=== PATIENT | male | born 1945 | race Caucasian/White ===

== ENCOUNTER → 2017-01-03 | Outpatient (CLI) | payer OTHER ==
[~2017-01-03] MED LIST: IOPAMIDOL (ISOVUE 370) 100 ML BTL IV ONE
== END ==
LOC: FIMAGING 11:38
PROVIDERS: ATTEND Internal Medicine Cardiovascular Disease
DX: I65.23 Occlusion and stenosis of bilateral carotid arteries (principal)
CPT/HCPCS: 70498; Q9967

== ENCOUNTER → 2017-02-14 | Outpatient (CLI) | payer OTHER | LOC: FIMAGING 15:44 | PROVIDERS: ATTEND Internal Medicine | DX: R10.9 Unspecified abdominal pain (principal) ==

== ENCOUNTER → 2017-05-13 | Outpatient (CLI) | payer OTHER ==
[~2017-05-13] MED LIST changes: -IOPAMIDOL (ISOVUE 370) 100 ML BTL IV ONE; +IOPAMIDOL (ISOVUE-M 200) 20 ML VIAL ONE; +LIDOCAINE 1% 300 MG/30 ML SDV ONE
== END ==
LOC: FIMAGING 05-07 09:22
PROVIDERS: ATTEND Neurological Surgery
PROC: 3E0R3KZ Introduction of Other Diagnostic Substance into Spinal Canal, Percutaneous Approach (ICD-10-PCS; principal; 2017-05-13)
DX: M48.061 Spinal stenosis, lumbar region without neurogenic claudication (principal); M99.73 Connective tissue and disc stenosis of intervertebral foramina of lumbar region; S33.140A Subluxation of L4/L5 lumbar vertebra, initial encounter
CPT/HCPCS: 62304; 72110; 72132; 72265; Q9966

== ENCOUNTER 2017-05-29 05:44 | Inpatient (IN) | payer OTHER ==
[2017-05-29] MEDS ORDERED: ACETAMINOPHEN 500 MG TAB PO ONE (05:50)
[2017-05-29] MEDS ORDERED: GABAPENTIN 300 MG CAP PO ONE (05:50)
[2017-05-29] MEDS ORDERED: ceFAZolin 2 GM/SWFI 2 GM/20 ML SYR IVP ONE (05:50)
--- NOTE | 2017-05-29 06:38 | PDHPUP ---
History & Physical Update H&P update statement: This history and physical update is based on an assessment of the patient which was completed after admission or registration (within 24 hours), but prior to the surgery/procedure. H&P update: H&P reviewed & patient examined, no change in patient's condition since H&P completed
[2017-05-29] MEDS ORDERED: CHLORHEXIDINE GLUC HIBICLENS 118 ML BTL TP ONE (06:57)
[2017-05-29] MEDS ORDERED: BACITRACIN 50,000 UNITS/10 ML SYR IRR ONE ×2 (06:58→10:35)
[2017-05-29] MEDS ORDERED: BUPIVACAINE 0.25% 30 ML SDV ONE (06:59)
[2017-05-29] MEDS ORDERED: morphINE SR 15 MG TAB PO ONE (07:00)
[2017-05-29] MEDS ORDERED: MIDAZOLAM 2 MG/2 ML VIAL IVP ONE (07:08)
--- NOTE | 2017-05-29 07:10 | PDANEPAE ---
ANE History of Present Illness spinal stenosis ANE Past Medical History - Cardiovascular History Hx Hypertension: Yes Hx Arrhythmias: Yes Hx Chest Pain: No Hx Coronary Artery / Peripheral Vascular Disease: Yes Hx CHF / Valvular Disease: Yes Hx Palpitations: No Cardiovascular History Comment: hx of CHF. ISCHEMIC CARDIOMYOPATHY. PACER / ICD '12. stents 2009. HIGH LIPIDS - Pulmonary History Hx Asthma/Reactive Airway Disease: No Hx Recent Upper Respiratory Infection: No Hx Oxygen in Use at Home: No Hx Sleep Apnea: Yes Sleep Apnea Screening Result - Last Documented: Positive Pulmonary History Comment: JARRETT- USE CPAP - Neurologic History Hx Cerebrovascular Accident: No Hx Seizures: No Hx Dementia: No Neurologic History Comment: hx of lumbar lami with vbk resulting in infection - Endocrine History Hx Diabetes: Yes Endocrine History Comment: TYPE 2 - Renal History Hx Renal Disorders: No - Liver History Hx Hepatic Disorders: No - Neurological & Psychiatric Hx Hx Neurological and Psychiatric Disorders: Yes Neurological / Psychiatric History Comment: low back pain, L glute pain,Pain in Post thigh. - Cancer History Hx Cancer: No - Congenital Disorder History Hx Congenital Disorders: No - GI History Hx Gastrointestinal Disorders: No Gastrointestinal History Comment: FISTULA REP SURG 2011. DIARRHEA - Other Health History Other Health History: none - Chronic Pain History Chronic Pain: Yes (back, L leg) - Surgical History Prior Surgeries: L carpal tunnel release,unlar nerve transposition 09-16-15. lumbar lami l3/4 l4/5 with vbk 02/09/14. lumbar i&d with vbk 03/03/14. CABG X3 - '98. ANAL FISTULA X 2 '12. R KNEE '65 ANGIOPLASY X 1-2 STENTS '. 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: [employer] Pacemaker Model: Lumax Date Pacemaker Last Checked: 03-11-17 ANE Patient History - Allergies Allergies/Adverse Reactions: hydrocodone bitartrate [From [facility]] Allergy (Severe, Verified 05/21/17 17:42) CONFUSION niacin Allergy (Verified 05/21/17 17:42) ITCHING,MUSCLE SORENESS, NAUSEA oxycodone Allergy (Verified 05/21/17 17:42) Other-Enter Comments antibiotic causing kidney/liver dis Allergy (Uncoded 05/21/17 17:42) - Home Medications Home Medications: Atorvastatin Calcium [Lipitor 20 mg (*)] 20 mg PO DAILY 09/15/12 [Last Taken 21:00] Carvedilol [Coreg (*)] 25 mg PO BIDMEAL 09/15/12 [Last Taken 05/29/17 05:00] Herbals/Supplements -Info Only 1 ea PO DAILY 03/01/14 [Last Taken 05/21/17] Watts-3 Fatty Acids [Fish Oil 1000 mg (*)] 3,000 mg PO DAILY 03/01/14 [Last Taken 05/21/17] Allopurinol [Allopurinol 100 MG (*)] 450 mg PO DAILY 05/20/17 [Last Taken 05:00] Aspirin [Aspirin 81mg (*)] 81 mg PO DAILY 05/20/17 [Last Taken 05/28/17] Cyanocobalamin [Vitamin B12 (*)] 2,500 mcg PO DAILY 05/20/17 [Last Taken Unknown ] Dabigatran Etexilate Mesyl [Pradaxa 150 MG (*)] 150 mg PO BID 05/20/17 [Last Taken 05/28/17 21:00] Ferrous Sulfate [Ferrous Sulf 325 MG (*)] 325 mg PO DAILY 05/20/17 [Last Taken Unknown] Gabapentin [Neurontin 300 MG (*)] 600 mg PO BID@,16 05/20/17 [Last Taken 05/29 05:00] Gabapentin [Neurontin 300 MG (*)] 900 mg PO HS 05/20/17 [Last Taken 05/28/17 21: 00] Hydrochlorothiazide [HCTZ (*)] 12.5 mg PO DAILY 05/20/17 [Last Taken 05/22/17] Multivitamins [Multivitamin (*)] 1 each PO DAILY 05/20/17 [Last Taken 05/21/17] Valsartan [Diovan (*)] 320 mg PO DAILY 05/20/17 [Last Taken 05/28/17 21:00] glipiZIDE [Glipizide] 5 mg PO BID 05/20/17 [Last Taken 05/28/17 08:00] - NPO status NPO Since - Liquids (Date): 05/28/17 NPO Since - Liquids (Time): 21:00 NPO Since - Solids (Date): 05/28/17 NPO Since - Solids (Time): 21:00 - Smoking Hx Smoking Status: Former smoker - Family Anes Hx Family Hx Anesthesia Complications: NONE ANE Labs/Vital Signs - Vital Signs Blood Pressure: 127/71 Heart Rate: 86 Respiratory Rate: 20 Height: 172.72 cm Weight: 102.058 kg ANE Physical Exam - Airway Mallampati Score: Class 2 Mouth exam: normal dental/mouth exam - Pulmonary Pulmonary: no respiratory distress - Cardiovascular Cardiovascular: regular rate and rhythym - ASA Status ASA Status: IV ANE Anesthesia Plan Anesthesia Plan: general endotracheal anesthesia
[2017-05-29] MEDS ORDERED: PROPOFOL 200 MG/20 ML VIAL ONE (07:15)
[2017-05-29] MEDS ORDERED: HYDROmorphONE/DILAUDID 2 MG/ML INJ ONE (07:15)
[2017-05-29] MEDS ORDERED: fentaNYL 100 MCG/2 ML INJ ONE ×2 (07:15)
[2017-05-29] MEDS ORDERED: ROCURONIUM 50 MG/5 ML VIAL ONE (07:15)
[2017-05-29] MEDS ORDERED: KETAMINE 100 MG/10 ML SYR ONE (07:28)
[2017-05-29] MEDS ORDERED: PROPOFOL/EMULSION 500 MG/50 ML BOTTLE IV ONE (07:29)
[2017-05-29] MEDS ORDERED: POLYETHYLENE GLYCOL 3350 17 GM PKT PO PRN (07:35)
[2017-05-29] MEDS ORDERED: ONDANSETRON DISINTEGRATING 4 MG TAB PO PRN (07:35)
[2017-05-29] MEDS ORDERED: diphenhydrAMINE 25 MG CAP PO PRN (07:35)
[2017-05-29] MEDS ORDERED: NALOXONE HCL 0.4 MG/ML INJ IVP PRN ×2 (07:35→11:58)
[2017-05-29] MEDS ORDERED: BISACODYL 10 MG SUPP PR PRN (07:35)
[2017-05-29] MEDS ORDERED: HYDROmorphONE/DILAUDID 6 MG/30 ML PCA IV PRN (07:35)
[2017-05-29] MEDS ORDERED: HYDROmorphONE/DILAUDID 1 MG/ML INJ IVP PRN (07:35)
[2017-05-29] MEDS ORDERED: LACTULOSE 20 GM/30 ML UDCUP PO PRN (07:35)
[2017-05-29] MEDS ORDERED: MAGNESIUM HYDROXIDE 30 ML UDCUP PO PRN (07:35)
[2017-05-29] MEDS ORDERED: ONDANSETRON 4 MG/2 ML VIAL IVP PRN ×2 (07:35→11:58)
[2017-05-29] MEDS ORDERED: NS W/ 20 KCl/L 1,000 ML IV SCH (07:45)
[2017-05-29] MEDS ORDERED: fentaNYL 100 MCG/2 ML INJ IVP PRN (11:58)
[2017-05-29] MEDS ORDERED: PROMETHAZINE HCL 25 MG/ML INJ IVP PRN (11:58)
--- NOTE | 2017-05-29 12:39 | POSTANESTH ---
Post Anesthetic Evaluation Cardiovascular Status: Normal, Stable Respiratory Status: Normal, Stable Level of Consciousness/Mental Status: Can Participate in Eval Pain Control: Adequate, Prn Tx Ordered Nausea/Vomiting Control: Adequate, Prn Tx Ordered Complications Possibly Related to Anesthesia: None Noted
--- NOTE | 2017-05-29 13:01 | SOAPPROG ---
SOAP Progress Note Assessment/Plan: Post Op Visit S: Awake and alert. Pt with expected lower back pain O: AFVSS/PERRLA/EOMI no droop CN 2-12 grossly intact +lt touch 5/5 BUE/BLE = CDI HERNÁN in place A/P: 71 yo male that is s/p TLIF L4-S1 -orders in place -brace when out of bed -pt seen by Dr Contreras -call with any questions or concerns 05/29/17 12:58 Objective: Vital Signs Temp Pulse Resp BP Pulse Ox 37 C 86 12 127/103 H 98 05/29/17 06:51 05/29/17 07:10 05/29/17 12:48 05/29/17 12:48 05/29/17 12:48 ICD10 Worksheet Patient Problems: Problems Problem Status Onset Arthrodesis status Acute Lumbar radicular pain Acute Lumbar stenosis Acute CAD - Coronary arteriosclerosis Active CHF - Congestive heart failure Active Chronic obstructive lung disease Active - ICD10 Problem Qualifiers (1) Lumbar stenosis (2) Lumbar radicular pain (3) Arthrodesis status
--- NOTE | 2017-05-29 14:09 | GOP ---
[f rep st] OPERATIVE REPORT DATE OF OPERATION: 05/29/2017 SURGEON: Radu Contreras MD IMAGING TECH: Gonzalo Linda PA-C PREOPERATIVE DIAGNOSIS: Lumbar spondylosis, prior lumbar laminectomy, lumbar degenerative disk disea se, severe left foraminal stenosis (L4-5), left lumbosacral radiculopathy, foraminal stenosis L5-S1. POSTOPERATIVE DIAGNOSIS: Lumbar spondylosis, prior lumbar laminectomy, lumbar degenerative disk dise ase, severe left foraminal stenosis (L4-5), left lumbosacral radiculopathy, foraminal stenosis L5-S1. PROCEDURE PERFORMED: Posterior lateral and intervertebral arthrodesis with decompression, left L4-5, L5-S1 (16511 [id number]), posterior segmental instrumentation L4, L5, S1 (72847), microscope, spinal stereotaxy, same incision bone graft harvest, placement of biomechanical intervertebral device L4-5, L5-S1. FINDINGS: ESTIMATED BLOOD LOSS: 250 cc. INDICATIONS: The patient is a 71-year-old with a prior history of a lumbar laminectomy (by an outsid e surgeon), who developed terrible left leg pain, and CT myelogram of the lumbar spine demonstrated n o evidence of complication from the prior surgery, but he did have severe left foraminal stenosis at L4-5 and some bilateral foraminal stenosis at L5-S1. I suggested a 2-level fusion of those levels. He did have a degree of stenosis at L2-3 and even L3-4, but I did not think that these warranted wes tment currently. I felt that the pain was most likely coming from the L4-5, L5-S1 levels. I discuss ed with him the risk of spinal fluid leak, particularly the risk in view of his prior lumbar decompre ssive surgery. He knew there was risk of pseudoarthrosis, adjacent segment disease, future spine hu baldo at L2-3 and 3-4. He knew there was a chance he may fail to heal and that he may or may not get relief from his leg pain. He knew there would be substantial back pain following this surgery, but i n time it generally resolves. He knew there was risk of CSF leak and infection, and he wanted to pro ceed despite these risks. DESCRIPTION OF PROCEDURE: Patient was taken to the operating room and placed in the supine position. General anesthesia was begun. He was flipped prone onto the Cuong table. Care was taken to pad all points of contact. His back was sterilely prepped and draped in the usual fashion. A localizing x-ray was taken. The prior incision was marked. We opened the prior incision, extended it rostrall y about 1.5 cm and inferiorly about 1.5 cm. The prior incision was about 3.5 cm. Total length of ou r incision was about 7 cm. The subcutaneous tissue was dissected using Bovie cautery down through th e fascia, and a subperiosteal dissection was made down the L3 spinous process. We went out and locat ed the L3-4 facet joint and then the L4 transverse process, and worked our way down on each side, den uding the L4-5 facet joint and localizing the L5 transverse process and then the sacral ala bilateral ly. We then denuded the L5-S1 facet joint bilaterally. We did shoot localizing x-rays before doing this, we attached the Portal [employer] reference frame, performed an O-arm spin and, using the frame of [facility] stereotaxy, placed pedicle screws bilaterally at L4, L5, and S1. Screws all stimulated at acceptab le levels. We performed another O-arm spin and all the screws were in excellent position. We then t ook a 70 mm steph, put 1 down on the left transitionally and tightened there and distracted between L4, 5, and S1. Then went to the right and transitionally tightened there, and then went back to the lef t and rotated the steph to get reduction of the lateral listhesis of L4 on L5, and then final distracte d on the left at L4-5, 5-1 and final tightened the cap screws according to company specifications. We then went to the right-hand side where we finished our distraction on the right-hand side. We julita t AP and lateral x-rays, and I was very happy with both his lumbar lordosis as well as the increase i n his disk space height at L4-5 and 5-1. We final tightened the cap screws according to company spec ifications and removed all soft tissue from the L4-5 and 5-1 lamina. We harvested the L5 spinous pro cess for autologous grafting purposes, introduced the scope, and under the scope we drilled left L5-S 1 hemilaminectomy, opened ligamentum flavum, and decompressed the left lateral recess. There were re ally very tight adhesions between the S1 root and the underlying disk at L5-S1, and these had to be d ivided under the microscope, I was very surprised, because we could not really break through these ad hesions, but I did ultimately divide them and mobilized the left S1 root. We also decompressed the e xiting L5 root in the neural foramen and followed the L5 nerve root up adjacent to the L5 pedicle int o the previously operated level at L4-5, where we performed the left L4-5 facetectomy, decompressing the exiting L4 nerve root. In the neural foramen, there was a large sub-annular disk fragment compre ssing the L4 root, and this was removed. We incised the L4-5 disk and removed the L4-5 disk and the cartilaginous endplates. We did likewise at L5-S1, we removed the disk and the cartilaginous endplat es. We then roughened the subchondral bone at L4-5 and 5-1 to create arthrodesis. We sized both spa sandrine for a 7 x 23 mm device. We packed bone autograft into both disk spaces followed by the 7 x 23 mm device. We then expanded it under fluoroscopic guidance, and I was happy with the positioning. We decorticated all the remaining bone posterolaterally bilaterally. There was a slight crack in the ri ght pars interarticularis of L5, but it was not a crack consistent with an isthmic spondylolisthesis; it just simply appeared to be a small hairline fracture. We denuded the bone on either side of this . We did not perform a Mcfarlane decompression, and it did not really appear to be iatrogenic or related to prior surgery. We decorticated all the surrounding bone and placed bone morphogenic protein and b one autograft posterolaterally bilaterally. We then placed a subfascial drain and closed the incisio n in multiple layers using Vicryl sutures. A running PDS was placed in the skin itself. The patient was reversed from anesthesia, extubated, and transferred to the recovery room in stable condition. There were no complications. COMPLICATIONS: None. INSTRUMENTATION USED: BIMA Solera 5.5 mm system with 7 x 23 mm Elevate cages at each level. We used 4.0 mg of BMP. COMPLICATIONS: None. /[id number]/MODL
[2017-05-29] MEDS ORDERED: HYDROmorphONE/DILAUDID 2 MG TAB ONE (14:20)
[2017-05-29] MEDS: HYDROmorphONE/DILAUDID 2 MG TAB PO PRN (14:21)
[2017-05-29] MEDS ORDERED: D50W 25 GM/50 ML SYR IVP PRN (14:33)
[2017-05-29] MEDS ORDERED: HYDROmorphone HCL/NS/PF 0.4 MG/2 ML SYR IVP PRN (15:00)
--- NOTE | 2017-05-29 15:01 | PDHOSCONS ---
Hospitalist Consult Hospitalist Consult: This is a 71 yo male who had lumbar fusion today due to lumbar disease and right leg pain by Dr. Contreras. He has complicated medical history and we have been asked to provide consultation. Surgery was uneventful. VS are stable. BP is overall well controlled on 2 agents. He has a hx on NIDDM. Last A1C is unclear. He has a hx of reported CKI, but most recent Cr is 1.2. He has a hx of CAD and is s/p CABG x 3 in 1997 as wel as BiAICD. He has a hx of AFib and is on Coreg. He has chronic AC with Pradaxa. He also is chronically on an Aspirin. Both of these have been held. He denies CP, SOB, N/V or other GI sx, focal weakness. 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 Will check A1C. Start ISS -Pain mgmt per primary -Lovenox for DVT proph -The pt's biggest anxiety provoking issue is that he developed a staph infection after his previous lumbars surgery. We will monitor closely. Thank you for this consultation, we will follow along with you
[2017-05-29] MEDS: ceFAZolin 2 GM/DEXTROSE 100 ML IV SCH ×2 (15:43→22:24)
[2017-05-29] MEDS: GABAPENTIN 300 MG CAP PO SCH ×5 (15:44→22:26)
[2017-05-29] MEDS: ACETAMINOPHEN 500 MG TAB PO SCH ×2 (15:45→22:26)
[2017-05-29] MEDS: CARVEDILOL 25 MG TAB PO SCH ×2 (16:05→16:53)
[2017-05-29] MEDS: ALLOPURINOL 100 MG TAB PO SCH (16:05)
[2017-05-29] MEDS: ATORVASTATIN CALCIUM 20 MG TAB PO SCH (16:05)
[2017-05-29] MEDS: HYDROCHLOROTHIAZIDE 12.5 MG CAP PO SCH (16:06)
[2017-05-29] MEDS: glipiZIDE 5 MG TAB PO SCH ×2 (16:06→20:10)
[2017-05-29] MEDS: CYANO/VITAMIN B12 1000 MCG TAB PO SCH (16:06)
[2017-05-29] MEDS: FERROUS SULFATE 325 MG TAB PO SCH (16:06)
[2017-05-29] MEDS: FAMOTIDINE 20 MG TAB PO SCH ×2 (16:06→20:10)
[2017-05-29] MEDS: SENNOSIDES/DOCUSATE SODIUM TAB PO SCH ×2 (16:07→20:09)
[2017-05-29] MEDS: VALSARTAN 160 MG TAB PO SCH ×2 (16:07→16:53)
[2017-05-29] MEDS: morphINE SR 15 MG TAB PO SCH ×2 (16:07→20:09)
[2017-05-29] MEDS: METHOCARBAMOL 750 MG TAB PO PRN (16:38)
--- NOTE | 2017-05-29 17:08 | CPEKG ---
Heart Rate: 109 RR Interval: 550 QRSD Interval: 124 QT Interval: 392 QTC Interval: 529 QRS [place]: -66 T Wave [place]: 89 EKG Severity - ABNORMAL ECG - EKG Impression: ATRIAL FIBRILLATION, V-RATE 88-132 EKG Impression: NONSPECIFIC IVCD WITH LAD EKG Impression: CONSIDER ANTEROSEPTAL INFARCT EKG Impression: ATRIAL FIBRILLATION HAS REPLACED ATRIAL PACING NOTED ON PRIOR ECG Electronically Signed By: Lucio Kang 29-May-2017 17:39:46
[2017-05-29] MEDS: INSULIN LISPRO 100 UNIT/ML SC SCH ×2 (17:43→22:24)
[2017-05-29] MEDS ORDERED: METOPROLOL TARTRATE 5 MG/5 ML INJ IVP ONE (17:45)
[2017-05-30] MEDS: ACETAMINOPHEN 500 MG TAB PO SCH ×3 (05:27→21:26)
[2017-05-30] MEDS: GABAPENTIN 300 MG CAP PO SCH ×6 (05:28→21:28)
[2017-05-30] MEDS: METHOCARBAMOL 750 MG TAB PO PRN (05:30)
[2017-05-30 05:42] LABS: PLATELET COUNT 119 10^3/uL (150-400)
--- NOTE | 2017-05-30 07:10 | NEUSURGPN ---
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 NAD. Eating/drinking and voiding. No f/c/n/v/d. Objective: AFVSS/PERRLA/EOMI no droop CN 2-12 grossly intact +lt touch 5/5 BUE/BLE = CDI HERNÁN in place Neuro Check Frequency: per routine Urinary Catheter in Place: No Catheter Insertion Date: 05/29/17 - Physician Discussed Patient with : Ben Patient Seen by : Ben Neurosurgery Physical Exam - Vitals, I&O, Labs I and O 05/29/17 05/30/17 05/31/17 05:59 05:59 05:59 Intake Total 2160 Output Total 1560 Balance 600 Weight 102.058 kg Intake: Oral (ml) 260 IV Intake (ml) 1900 Output: Urine (ml) 1000 Catheter 1000 HERNÁN Drain Output (ml) 560 #1 Back 560 Other: Number of Voids Catheter 1 Vital Signs Temp Pulse Resp BP Pulse Ox 37.0 C 88 18 115/78 94 05/30/17 04:00 05/30/17 04:00 05/30/17 04:00 05/30/17 04:00 05/30/17 04:00 Laboratory Results 05/30/17 05:20 05/30/17 05:20 ICD10 Worksheet Patient Problems: Problems Problem Status Onset Arthrodesis status Acute Lumbar radicular pain Acute Lumbar stenosis Acute CAD - Coronary arteriosclerosis Active CHF - Congestive heart failure Active Chronic obstructive lung disease Active - ICD10 Problem Qualifiers (1) Lumbar stenosis (2) Lumbar radicular pain (3) Arthrodesis status
[2017-05-30] MEDS: INSULIN LISPRO 100 UNIT/ML SC SCH ×3 (08:27→17:23)
[2017-05-30] MEDS: FAMOTIDINE 20 MG TAB PO SCH ×2 (08:31→21:26)
[2017-05-30] MEDS: FERROUS SULFATE 325 MG TAB PO SCH (08:32)
[2017-05-30] MEDS: ATORVASTATIN CALCIUM 20 MG TAB PO SCH (08:32)
[2017-05-30] MEDS: morphINE SR 15 MG TAB PO SCH ×2 (08:32→21:26)
[2017-05-30] MEDS: VALSARTAN 160 MG TAB PO SCH (08:33)
[2017-05-30] MEDS: SENNOSIDES/DOCUSATE SODIUM TAB PO SCH ×2 (08:33→21:27)
[2017-05-30] MEDS: CARVEDILOL 25 MG TAB PO SCH ×2 (08:33→17:22)
[2017-05-30] MEDS: glipiZIDE 5 MG TAB PO SCH ×2 (08:34→21:27)
[2017-05-30] MEDS: HYDROCHLOROTHIAZIDE 12.5 MG CAP PO SCH (08:34)
[2017-05-30] MEDS: ALLOPURINOL 100 MG TAB PO SCH (08:41)
[2017-05-30] MEDS: CYANO/VITAMIN B12 1000 MCG TAB PO SCH (08:43)
--- NOTE | 2017-05-30 14:24 | HOSPPROG ---
Hospitalist Progress Note Assessment/Plan: This is a 71 yo male who had lumbar fusion due to severe left foraminal stenosis causing leg pain. He has done well in the post op setting. He has a hx of NIDDM, CKI, CAD, s/p CABG x 3 in 1997 and has a BiAICD. Has afib and is on Pradaxa and aspirin therapy. Today is my first encounter with the patient, chart reviewed. *Severe left foraminal stenosis causing leg pain s/p TLIF L4-S1 POD #1 *Chronic Afib on Coreg/well rate controlled spoke w Neurosurgery and ok to resume Pradaxa on Saturday resume aspirin when ok with neurosurgery *Hx of systolic heart failure euvolemic sees Dr. Tee Khan as an OP *HTN stable on ARB and HCTZ *Chronic renal insuff cont close monitoring *HLD statin therapy *NIDDM w associated neuropathy glucoses overall are stable Glipizide A1c is 6.5 with average glucose of 140 *DVT prophylaxis: LMWH to be started on Saturday per neurosurgery *Plan: continued close monitoring/ both and patient are anxious about patient's prior hx of getting a staph infection after surgery/ will monitor him closely. Will resume Pradaxa this Saturday. Updated both the patient and his about plan of care. Subjective: Douglas is overall feeling well. Objective: Vital Signs Temp Pulse Resp BP Pulse Ox 36.9 C 90 17 106/68 92 05/30/17 14:00 05/30/17 14:00 05/30/17 08:00 05/30/17 14:00 05/30/17 14:00 Laboratory Results 05/30/17 05:20 05/30/17 05:20 05/29/17 05/30/17 05/31/17 05:59 05:59 05:59 Intake Total 2160 300 Output Total 1560 Balance 600 300 - Physical Exam Constitutional: no apparent distress, obese Eyes: PERRL Ears, Nose, Mouth, Throat: hearing normal Cardiovascular: irregularly irregular Respiratory: no respiratory distress, reduced air movement (bases) Gastrointestinal: other (large and round) Skin: warm Musculoskeletal: generalized weakness Neurologic: AAOx3 Psychiatric: interacting appropriately ICD10 Worksheet Patient Problems: Problems Problem Status Onset Arthrodesis status Acute Lumbar radicular pain Acute Lumbar stenosis Acute CAD - Coronary arteriosclerosis Active CHF - Congestive heart failure Active Chronic obstructive lung disease Active
--- NOTE | 2017-05-30 16:40 | ASMTCMCOM ---
CM Note CM Note Notes: OT rec home, PT rec HHC vs. SNF. Spoke at length w pt and Aparna about d/c options. They described what was a traumatic time when pt last had surgery over 3 years ago when pt had a staph infection and pt only SNF option was [facility]. Pt interested in referral to [facility] and plans to tour. CM to follow. Date Signed: 05/30/2017 04:39 PM Electronically Signed By:JAY Muñoz
[2017-05-30] MEDS: HYDROmorphONE/DILAUDID 2 MG TAB PO PRN (17:22)
[2017-05-31] MEDS: HYDROmorphONE/DILAUDID 2 MG TAB PO PRN ×2 (01:17→19:35)
[2017-05-31 05:08] LABS: PLATELET COUNT 100 10^3/uL (150-400)
[2017-05-31] MEDS: ACETAMINOPHEN 500 MG TAB PO SCH ×3 (05:59→21:39)
[2017-05-31] MEDS: GABAPENTIN 300 MG CAP PO SCH ×4 (05:59→21:38)
--- NOTE | 2017-05-31 08:15 | NEUSURGPN ---
Assessment/Plan: Assessment: 71 yo male that is s/p TLIF L4-S1 POD #2 Plan: -pt with expected lower back pain-legs feel better -PT/OT ordered -post op xrays show stable hardware -HERNÁN still in place- remove today -[employer]->PO meds -IM on board for management of medical issues-appreciate input and care -call with any questions or concerns -brace when out of bed -pt d/w Dr Contreras -pt understands and agrees -Dispo: may need rehab placement. Subjective: Pt resting in bed, states he wants to go to rehab and is interested in this Objective: AAOx3 NAD VSS MAEx4 Motor 5/5 BLE Incision dressed JPx1 Urinary Catheter in Place: No Catheter Insertion Date: 05/29/17 - Physician Discussed Patient with : Ben Neurosurgery Physical Exam - Vitals, I&O, Labs I and O 05/30/17 05/31/17 06/01/17 05:59 05:59 05:59 Intake Total 2160 300 Output Total 1560 1560 180 Balance 600 -1260 -180 Weight 102.058 kg Intake: Oral (ml) 260 300 IV Intake (ml) 1900 Output: Urine (ml) 1000 1500 Catheter 1000 Urinal 1500 HERNÁN Drain Output (ml) 560 60 180 #1 Back 560 60 180 Other: Number of Voids Catheter 1 Toilet 1 Urinal 2 Vital Signs Temp Pulse Resp BP Pulse Ox 36.7 C 75 18 119/67 91 L 05/31/17 04:00 05/31/17 04:00 05/31/17 04:00 05/31/17 04:00 05/31/17 04:00 Laboratory Results 05/31/17 04:49 05/31/17 04:49 ICD10 Worksheet Patient Problems: Problems Problem Status Onset Arthrodesis status Acute Lumbar radicular pain Acute Lumbar stenosis Acute CAD - Coronary arteriosclerosis Active CHF - Congestive heart failure Active Chronic obstructive lung disease Active
[2017-05-31] MEDS: FAMOTIDINE 20 MG TAB PO SCH ×2 (09:30→21:38)
[2017-05-31] MEDS: ATORVASTATIN CALCIUM 20 MG TAB PO SCH (09:34)
[2017-05-31] MEDS: VALSARTAN 160 MG TAB PO SCH (09:34)
[2017-05-31] MEDS: HYDROCHLOROTHIAZIDE 12.5 MG CAP PO SCH (09:34)
[2017-05-31] MEDS: ALLOPURINOL 100 MG TAB PO SCH (09:35)
[2017-05-31] MEDS: CARVEDILOL 25 MG TAB PO SCH ×2 (09:35→17:28)
[2017-05-31] MEDS: morphINE SR 15 MG TAB PO SCH ×2 (09:35→21:38)
[2017-05-31] MEDS: glipiZIDE 5 MG TAB PO SCH ×2 (09:36→21:38)
[2017-05-31] MEDS: CYANO/VITAMIN B12 1000 MCG TAB PO SCH (09:37)
[2017-05-31] MEDS: SENNOSIDES/DOCUSATE SODIUM TAB PO SCH ×2 (09:37→21:39)
--- NOTE | 2017-05-31 10:35 | HOSPPROG ---
Hospitalist Progress Note Assessment/Plan: This is a 71 yo male who had lumbar fusion due to severe left foraminal stenosis causing leg pain. He has done well in the post op setting. He has a hx of NIDDM, CKI, CAD, s/p CABG x 3 in 1997 and has a BiAICD. Has afib and is on Pradaxa and aspirin therapy. *Severe left foraminal stenosis causing leg pain s/p TLIF L4-S1 POD #2 *Chronic Afib on Coreg/well rate controlled spoke w Neurosurgery and ok to resume Pradaxa on Saturday resume aspirin when ok with neurosurgery *Hx of systolic heart failure/ resolved euvolemic sees Dr. Tee Khan as an OP *HTN stable on ARB and HCTZ *Chronic renal insuff cont close monitoring * hx of staph infection after back surgery occurred several years ago no indication for abx at this time for prevention *HLD statin therapy *NIDDM w associated neuropathy glucoses overall are stable Glipizide A1c is 6.5 with average glucose of 140 *DVT prophylaxis: LMWH to be started on Saturday per neurosurgery *Plan: Continue current care/ he will likely be dc to SNF on Saturday Subjective: Douglas is feeling fine at this time. Objective: Vital Signs Temp Pulse Resp BP Pulse Ox 36.9 C 106 H 18 115/77 95 05/31/17 07:30 05/31/17 09:35 05/31/17 07:30 05/31/17 09:35 05/31/17 07:30 Laboratory Results 05/31/17 04:49 05/31/17 04:49 05/30/17 05/31/17 06/01/17 05:59 05:59 05:59 Intake Total 2160 300 Output Total 1560 1560 250 Balance 600 -1260 -250 - Physical Exam Constitutional: no apparent distress, not in pain, obese Eyes: PERRL Ears, Nose, Mouth, Throat: hearing normal Cardiovascular: no murmur, rub, or gallop, irregularly irregular Respiratory: no respiratory distress Skin: warm Musculoskeletal: generalized weakness Neurologic: AAOx3 Psychiatric: interacting appropriately ICD10 Worksheet Patient Problems: Problems Problem Status Onset Arthrodesis status Acute Lumbar radicular pain Acute Lumbar stenosis Acute CAD - Coronary arteriosclerosis Active CHF - Congestive heart failure Active Chronic obstructive lung disease Active
[2017-05-31] MEDS: FERROUS SULFATE 325 MG TAB PO SCH (10:36)
[2017-05-31] MEDS: INSULIN LISPRO 100 UNIT/ML SC SCH ×3 (10:38→17:29)
[2017-06-01] MEDS: HYDROmorphONE/DILAUDID 2 MG TAB PO PRN ×2 (02:47→07:41)
[2017-06-01] MEDS: ACETAMINOPHEN 500 MG TAB PO SCH ×3 (05:16→21:24)
[2017-06-01] MEDS: GABAPENTIN 300 MG CAP PO SCH ×3 (05:16→21:24)
[2017-06-01] MEDS: METHOCARBAMOL 750 MG TAB PO PRN ×2 (07:41→21:24)
--- NOTE | 2017-06-01 08:03 | SOAPPROG ---
SOAP Progress Note Assessment/Plan: Assessment: 71 yo male that is s/p TLIF L4-S1 POD #3 Plan: -pt with expected lower back pain-legs feel better -PT/OT ordered, rehab eval pending -post op xrays show stable hardware, good alignment -IM on board for management of medical issues-appreciate input and care -call with any questions or concerns -brace when out of bed -likely d/c to rehab on Saturday or earlier if bed available 06/01/17 08:02 Subjective: no new complaints, very happy Objective: Vital Signs Temp Pulse Resp BP Pulse Ox 37.2 C 81 19 128/83 H 95 06/01/17 04:00 06/01/17 04:00 06/01/17 04:00 06/01/17 04:00 06/01/17 04:00 Laboratory Results 05/31/17 04:49 05/31/17 04:49 05/31/17 06/01/17 06/02/17 05:59 05:59 04:59 Intake Total 300 300 Output Total 1560 1600 Balance -1260 -1300 AAOx3, full strength and sensation, no drift, dressings c/d/i - Pending Discharge Pending Discharge Within 24 Hours: No Pending Discharge Within 48 Hours: Yes Pending Discharge Date: 06/03/17 Pending Discharge Time: 11:00 ICD10 Worksheet Patient Problems: Problems Problem Status Onset Arthrodesis status Acute Lumbar radicular pain Acute Lumbar stenosis Acute CAD - Coronary arteriosclerosis Active CHF - Congestive heart failure Active Chronic obstructive lung disease Active
[2017-06-01] MEDS: VALSARTAN 160 MG TAB PO SCH (08:48)
[2017-06-01] MEDS: morphINE SR 15 MG TAB PO SCH ×2 (08:48→21:25)
[2017-06-01] MEDS: SENNOSIDES/DOCUSATE SODIUM TAB PO SCH ×2 (08:48→21:26)
[2017-06-01] MEDS: CYANO/VITAMIN B12 1000 MCG TAB PO SCH (08:49)
[2017-06-01] MEDS: CARVEDILOL 25 MG TAB PO SCH ×2 (08:51→18:24)
[2017-06-01] MEDS: glipiZIDE 5 MG TAB PO SCH ×2 (08:51→21:25)
[2017-06-01] MEDS: FERROUS SULFATE 325 MG TAB PO SCH (08:52)
[2017-06-01] MEDS: ATORVASTATIN CALCIUM 20 MG TAB PO SCH (08:52)
[2017-06-01] MEDS: FAMOTIDINE 20 MG TAB PO SCH ×2 (08:52→21:25)
[2017-06-01] MEDS: HYDROCHLOROTHIAZIDE 12.5 MG CAP PO SCH (08:52)
[2017-06-01] MEDS: ALLOPURINOL 100 MG TAB PO SCH (08:53)
[2017-06-01] MEDS: INSULIN LISPRO 100 UNIT/ML SC SCH ×3 (08:54→18:41)
[2017-06-01] MEDS ORDERED: ENOXAPARIN 40 MG/0.4 ML SYR SC SCH (09:00)
--- NOTE | 2017-06-01 11:35 | HOSPPROG ---
Hospitalist Progress Note Assessment/Plan: This is a 71 yo male who had lumbar fusion due to severe left foraminal stenosis causing leg pain. He has done well in the post op setting. He has a hx of NIDDM, CKI, CAD, s/p CABG x 3 in 1997 and has a BiAICD. Has afib and is on Pradaxa and aspirin therapy. *Severe left foraminal stenosis causing leg pain s/p TLIF L4-S1 POD #3 *Chronic Afib on Coreg/well rate controlled spoke w Neurosurgery and ok to resume Pradaxa today resume aspirin when ok with neurosurgery *Hx of systolic heart failure/ resolved euvolemic sees Dr. Tee Khan as an OP *HTN stable on ARB and HCTZ *Chronic renal insuff cont close monitoring * hx of staph infection after back surgery occurred several years ago no indication for abx at this time for prevention *HLD statin therapy *NIDDM w associated neuropathy change to ADA diet Glipizide A1c is 6.5 with average glucose of 140 *DVT prophylaxis: dc LMWH/ patient is on Pradaxa/ spoke with neurosurgery and they were ok to initiate this today *Plan: Continue current care/ he will likely be dc to SNF on Saturday per neurosurgery/check labs in a.m. Subjective: Douglas said his pain is well managed/ feeling well. Objective: Vital Signs Temp Pulse Resp BP Pulse Ox 36.7 C 81 16 119/60 95 06/01/17 08:30 06/01/17 08:51 06/01/17 08:30 06/01/17 08:52 06/01/17 08:30 Laboratory Results 05/31/17 04:49 05/31/17 04:49 05/31/17 06/01/17 06/02/17 05:59 05:59 04:59 Intake Total 300 300 Output Total 1560 1600 300 Balance -1260 -1300 -300 - Physical Exam Constitutional: no apparent distress, appears nourished, not in pain Eyes: PERRL Ears, Nose, Mouth, Throat: hearing normal Cardiovascular: irregularly irregular, No tachycardia Respiratory: no respiratory distress, clear to auscultation Gastrointestinal: normoactive bowel sounds Skin: warm Musculoskeletal: generalized weakness Neurologic: AAOx3 Psychiatric: interacting appropriately ICD10 Worksheet Patient Problems: Problems Problem Status Onset Arthrodesis status Acute Lumbar radicular pain Acute Lumbar stenosis Acute CAD - Coronary arteriosclerosis Active CHF - Congestive heart failure Active Chronic obstructive lung disease Active
[2017-06-01] MEDS: DABIGATRAN ETEXILATE MESYL 150 MG CAP PO SCH ×2 (13:14→21:23)
[2017-06-02] MEDS: GABAPENTIN 300 MG CAP PO SCH ×3 (04:40→19:59)
[2017-06-02] MEDS: ACETAMINOPHEN 500 MG TAB PO SCH ×3 (04:43→19:59)
[2017-06-02 05:28] LABS: PLATELET COUNT 117 10^3/uL (150-400)
[2017-06-02] MEDS: INSULIN LISPRO 100 UNIT/ML SC SCH ×3 (07:50→17:04)
[2017-06-02] MEDS: CYANO/VITAMIN B12 1000 MCG TAB PO SCH (08:11)
[2017-06-02] MEDS: VALSARTAN 160 MG TAB PO SCH (08:11)
[2017-06-02] MEDS: glipiZIDE 5 MG TAB PO SCH ×2 (08:12→19:58)
[2017-06-02] MEDS: SENNOSIDES/DOCUSATE SODIUM TAB PO SCH ×2 (08:13→19:51)
[2017-06-02] MEDS: CARVEDILOL 25 MG TAB PO SCH ×2 (08:13→17:05)
[2017-06-02] MEDS: HYDROCHLOROTHIAZIDE 12.5 MG CAP PO SCH (08:13)
[2017-06-02] MEDS: DABIGATRAN ETEXILATE MESYL 150 MG CAP PO SCH ×2 (08:13→19:58)
[2017-06-02] MEDS: FERROUS SULFATE 325 MG TAB PO SCH (08:14)
[2017-06-02] MEDS: ATORVASTATIN CALCIUM 20 MG TAB PO SCH (08:15)
[2017-06-02] MEDS: ALLOPURINOL 300 MG TAB PO SCH (08:15)
[2017-06-02] MEDS: FAMOTIDINE 20 MG TAB PO SCH ×2 (08:16→19:58)
--- NOTE | 2017-06-02 09:13 | SOAPPROG ---
SOAP Progress Note Assessment/Plan: Assessment: 71 yo male that is s/p TLIF L4-S1 POD #4 Plan: -pt with expected lower back pain-legs feel better -PT/OT ordered, rehab eval pending, -post op xrays show stable hardware, good alignment -IM on board for management of medical issues-appreciate input and care -will add some trazodone at night for sleep -call with any questions or concerns -brace when out of bed -likely d/c to rehab on Saturday or earlier if bed available 06/02/17 09:11 Subjective: c/o difficulty sleeping last night Objective: Vital Signs Temp Pulse Resp BP Pulse Ox 36.9 C 102 H 15 157/84 H 90 L 06/02/17 07:51 06/02/17 07:51 06/02/17 07:51 06/02/17 08:11 06/02/17 07:51 Laboratory Results 06/02/17 05:11 06/02/17 05:11 06/01/17 06/02/17 06/03/17 06:59 05:59 05:59 Intake Total Output Total Balance AAOx3, full strength and sensation, no drift, dressing c/d/i - Pending Discharge Pending Discharge Within 24 Hours: Yes Pending Discharge Within 48 Hours: Yes Pending Discharge Date: 06/03/17 Pending Discharge Time: 11:00 ICD10 Worksheet Patient Problems: Problems Problem Status Onset Arthrodesis status Acute Lumbar radicular pain Acute Lumbar stenosis Acute CAD - Coronary arteriosclerosis Active CHF - Congestive heart failure Active Chronic obstructive lung disease Active
--- NOTE | 2017-06-02 10:27 | ASMTCMCOM ---
CM Note CM Note Notes: Pt's toured [facility] yesterday and chose them. Faxed referral and spoke with Liz in admissions who agreed to accept tomorrow. Pt and would like AM DC. Alerted Powerback to pt's choice. Date Signed: 06/02/2017 10:26 AM Electronically Signed By:Elvi Duong LCSW
--- NOTE | 2017-06-02 10:27 | ASMTCMCOM ---
CM Note CM Note Notes: Pt's toured [facility] yesterday and chose them. Faxed referral and spoke with Liz in admissions who agreed to accept tomorrow. Pt and would like AM DC. Alerted Powerback to pt's choice. Date Signed: 06/02/2017 10:26 AM Electronically Signed By:Elvi Duong LCSW
--- NOTE | 2017-06-02 10:27 | ASMTCMCOM ---
CM Note CM Note Notes: Pt's toured [facility] yesterday and chose them. Faxed referral and spoke with Liz in admissions who agreed to accept tomorrow. Pt and would like AM DC. Alerted Powerback to pt's choice. Date Signed: 06/02/2017 10:26 AM Electronically Signed By:Elvi Duong LCSW
[2017-06-02] MEDS: morphINE SR 15 MG TAB PO SCH ×2 (10:34→19:51)
--- NOTE | 2017-06-02 11:16 | HOSPPROG ---
Hospitalist Progress Note Assessment/Plan: This is a 71 yo male who had lumbar fusion due to severe left foraminal stenosis causing leg pain. He has done well in the post op setting. He has a hx of NIDDM, CKI, CAD, s/p CABG x 3 in 1997 and has a BiAICD. Has afib and is on Pradaxa and aspirin therapy. *Severe left foraminal stenosis causing leg pain s/p TLIF L4-S1 POD #4 on long acting morphine has done well w Tramadol in the past/ have ordered this *permanent Afib on Coreg/well rate controlled spoke w Neurosurgery and ok to resume Pradaxa today resume aspirin when ok with neurosurgery *Hx of systolic heart failure/ resolved euvolemic sees Dr. Tee Khan as an OP *insomnia last night will dc Trazodone and do a trial of melatonin/ he had some confusion last night concerned the Trazodone will make this worse *HTN stable on ARB and HCTZ *Chronic renal insuff cont close monitoring * hx of staph infection after back surgery occurred several years ago no indication for abx at this time for prevention *HLD statin therapy *NIDDM w associated neuropathy change to ADA diet Glipizide A1c is 6.5 with average glucose of 140 *DVT prophylaxis: dc LMWH/ patient is on Pradaxa *Plan: Continue current care/ he will likely be dc to SNF on Saturday. [facility] will be [facility]. Subjective: Douglas is feeling well today/ had some insomnia last night. Objective: Vital Signs Temp Pulse Resp BP Pulse Ox 36.9 C 102 H 15 157/84 H 90 L 06/02/17 07:51 06/02/17 07:51 06/02/17 07:51 06/02/17 08:11 06/02/17 07:51 Laboratory Results 06/02/17 05:11 06/02/17 05:11 06/01/17 06/02/17 06/03/17 06:59 05:59 05:59 Intake Total Output Total Balance - Physical Exam Constitutional: no apparent distress, not in pain, obese Eyes: PERRL Ears, Nose, Mouth, Throat: hearing normal Cardiovascular: irregularly irregular Respiratory: no respiratory distress Gastrointestinal: normoactive bowel sounds Skin: warm Musculoskeletal: generalized weakness Neurologic: AAOx3 Psychiatric: interacting appropriately ICD10 Worksheet Patient Problems: Problems Problem Status Onset CHF - Congestive heart failure Active CAD - Coronary arteriosclerosis Active Chronic obstructive lung disease Active Lumbar stenosis Acute Lumbar radicular pain Acute Arthrodesis status Acute
[2017-06-02] MEDS ORDERED: traMADol 50 MG TAB PO PRN (11:19)
[2017-06-02] MEDS ORDERED: MELATONIN 3 MG TAB PO SCH (21:00)
[2017-06-02] MEDS ORDERED: traZODone 50 MG TAB PO SCH (21:00)
[2017-06-03 02:59] VITALS: BP 146/87
[2017-06-03] MEDS: GABAPENTIN 300 MG CAP PO SCH (04:48)
[2017-06-03] MEDS: ACETAMINOPHEN 500 MG TAB PO SCH (04:49)
[2017-06-03 07:44] VITALS: PULSE 95; RESP 16; TEMP 98.4; O2SAT 92
[2017-06-03] MEDS: CYANO/VITAMIN B12 1000 MCG TAB PO SCH (08:39)
[2017-06-03] MEDS: VALSARTAN 160 MG TAB PO SCH (08:40)
[2017-06-03] MEDS: ALLOPURINOL 300 MG TAB PO SCH (08:40)
[2017-06-03] MEDS: FAMOTIDINE 20 MG TAB PO SCH (08:40)
[2017-06-03] MEDS: HYDROCHLOROTHIAZIDE 12.5 MG CAP PO SCH (08:40)
[2017-06-03] MEDS: SENNOSIDES/DOCUSATE SODIUM TAB PO SCH (08:40)
[2017-06-03] MEDS: CARVEDILOL 25 MG TAB PO SCH (08:41)
[2017-06-03] MEDS: ATORVASTATIN CALCIUM 20 MG TAB PO SCH (08:41)
[2017-06-03] MEDS: FERROUS SULFATE 325 MG TAB PO SCH (08:41)
[2017-06-03] MEDS: DABIGATRAN ETEXILATE MESYL 150 MG CAP PO SCH (08:42)
[2017-06-03] MEDS: glipiZIDE 5 MG TAB PO SCH (08:42)
--- NOTE | 2017-06-03 08:43 | NEUSURGPN ---
Date of Surgery: 05/29/17 Post Op Day: 5 Assessment/Plan: 71 yo male that is s/p TLIF L4-S1 POD #5 Plan: -pt with expected lower back pain-legs feel better -PT/OT ordered -rehab eval pending -post op xrays show stable hardware, good alignment -IM on board for management of medical issues-appreciate input and care -call with any questions or concerns -brace when out of bed -may dc to rehab/SNF today per case management/therapies recs Subjective: Patient feeling well today Objective: AxO x3 Sitting up in chair 5/5 BLE Sensation intact light touch BLE Dressing CDI Neuro Check Frequency: per routine Urinary Catheter in Place: No Catheter Insertion Date: 05/29/17 - Physician Discussed Patient with : Ben Patient Seen by : Bne Neurosurgery Physical Exam - Vitals, I&O, Labs I and O 06/02/17 06/03/17 06/04/17 05:59 05:59 05:59 Intake Total 300 Output Total Balance 300 Intake: Oral (ml) 300 Output: Urine (ml) Urinal Other: Number of Voids Toilet 3 Number of Stools Toilet Vital Signs Temp Pulse Resp BP Pulse Ox 36.9 C 95 16 146/87 H 92 06/03/17 07:41 06/03/17 07:41 06/03/17 07:41 06/03/17 07:41 06/03/17 07:41 Laboratory Results 06/02/17 05:11 06/02/17 05:11 ICD10 Worksheet Patient Problems: Problems Problem Status Onset Arthrodesis status Acute Lumbar radicular pain Acute Lumbar stenosis Acute CAD - Coronary arteriosclerosis Active CHF - Congestive heart failure Active Chronic obstructive lung disease Active
--- NOTE | 2017-06-03 08:49 | PDIAF ---
- Diagnosis Code Status: Full Code - Medication Management Discharge Medications: Medications to Continue on Transfer Atorvastatin Calcium [Lipitor 20 mg (*)] 20 mg PO DAILY 09/15/12 [Last Taken 21:00] Carvedilol [Coreg (*)] 25 mg PO BIDMEAL 09/15/12 [Last Taken 05/29/17 05:00] Herbals/Supplements -Info Only 1 ea PO DAILY 03/01/14 [Last Taken 05/21/17] Cornucopia-3 Fatty Acids [Fish Oil 1000 mg (*)] 3,000 mg PO DAILY 03/01/14 [Last Taken 05/21/17] Allopurinol [Allopurinol 100 MG (*)] 450 mg PO DAILY 05/20/17 [Last Taken 05:00] Aspirin [Aspirin 81mg (*)] 81 mg PO DAILY 05/20/17 [Last Taken 05/28/17] Cyanocobalamin [Vitamin B12 (*)] 2,500 mcg PO DAILY 05/20/17 [Last Taken Unknown ] Dabigatran Etexilate Mesyl [Pradaxa 150 MG (*)] 150 mg PO BID 05/20/17 [Last Taken 05/28/17 21:00] Ferrous Sulfate [Ferrous Sulf 325 MG (*)] 325 mg PO DAILY 05/20/17 [Last Taken Unknown] Gabapentin [Neurontin 300 MG (*)] 600 mg PO BID@,05/20/17 [Last Taken 05/29 05:00] Gabapentin [Neurontin 300 MG (*)] 900 mg PO HS 05/20/17 [Last Taken 05/28/17 21: 00] Hydrochlorothiazide [HCTZ (*)] 12.5 mg PO DAILY 05/20/17 [Last Taken 05/22/17] Multivitamins [Multivitamin (*)] 1 each PO DAILY 05/20/17 [Last Taken 05/21/17] Valsartan [Diovan (*)] 320 mg PO DAILY 05/20/17 [Last Taken 05/28/17 21:00] glipiZIDE [Glipizide] 5 mg PO BID 05/20/17 [Last Taken 05/28/17 08:00] Acetaminophen [Tylenol ES 500 mg (*)] 1,000 mg PO Q8HRS tab 06/03/17 [Last Taken Unknown] Methocarbamol [Robaxin 750 mg (*)] 750 mg PO QID PRN tab 06/03/17 [Last Taken Unknown] Sennosides/Docusate Sodium [Senokot-S] 1 - 2 tab PO BID tab 06/03/17 [Last Taken Unknown] Discharge Medications: Refer to the Discharge Home Medication list for PRN reason. PICC Care - Routine: N/A - Orders Services needed: Registered Nurse, Certified Junior Php Developer, Physical Therapy, Occupational Therapy Diet Recommendation: no restrictions on diet Diet Texture: Regular Texture Diet Wound Care Instructions: May remove dressing, leave steri strips in place Activity/Weight Bearing Restrictions: No bending or twisting. Do not lift greater than 10 pounds Equipment: Wear brace when out of bed - Follow Up Care Current Providers and Referrals: Alba Melendez MD [Primary Care Provider] - Rome Contreras MD [Medical Doctor] - follow up in 2 weeks
[2017-06-03] MEDS: INSULIN LISPRO 100 UNIT/ML SC SCH (09:04)
[2017-06-03] MEDS: morphINE SR 15 MG TAB PO SCH (09:05)
--- NOTE | 2017-06-03 10:49 | ASMTCMCOM ---
CM Note CM Note Notes: Pt medically stable for d/c to [facility] transport 10:40. TRESA Beyer to call report. Orders sent in Allscripts. Pt is present for d/c. Date Signed: 06/03/2017 10:48 AM Electronically Signed By:JAY Muñoz
--- NOTE | 2017-06-03 10:49 | ASMTCMCOM ---
CM Note CM Note Notes: Pt medically stable for d/c to [facility] transport 10:40. TRESA Beyer to call report. Orders sent in Allscripts. Pt is present for d/c. Date Signed: 06/03/2017 10:48 AM Electronically Signed By:JAY Muñoz
--- NOTE | 2017-06-03 10:49 | ASMTCMCOM ---
CM Note CM Note Notes: Pt medically stable for d/c to [facility] transport 10:40. TRESA Beyer to call report. Orders sent in Allscripts. Pt is present for d/c. Date Signed: 06/03/2017 10:48 AM Electronically Signed By:JAY Muñoz
--- NOTE | 2017-06-03 12:06 | ASDISCHSUM ---
Discharge Information Plan Status:SNF Medically Cleared to Leave: Discharge Date:06/03/2017 10:52 AM CM D/C Disposition:Half-Way Facility ADT D/C Disposition:Half-Way Facility Projected Discharge Date:06/01/2017 11:00 AM Transportation at D/C:Wheelchair Van Discharge Delay Reason: Follow-Up Date:06/01/2017 11:00 AM Discharge Slot: Final Diagnosis: Placement Information Referral Type:*Assisted/SNF Referral ID:[id number] Provider Name:[facility] Address 1:[address] Address 2: City:[place] Selection Factors: State:[place] Patient Contact Information Contact Name:RAMONA Relationship: Address:[address] City:[place] Alternate Phone: State/Zip Code:[place] [address] Email: Financial Information Financial Class: Primary Plan Desc:MEDICARE INPATIENT Primary Plan Number:[id number] Secondary Plan Desc:[facility] Secondary Plan Number:[id number] Assessment Information [facility] CM Progress Note CM Note CM Note Notes: OT rec home, PT rec HHC vs. SNF. Spoke at length w pt and Aparna about d/c options. They described what was a traumatic time when pt last had surgery over 3 years ago when pt had a staph infection and pt only SNF option was [facility]. Pt interested in referral to [facility] and plans to tour. CM to follow. Date Signed: 05/30/2017 04:39 PM Electronically Signed By:JAY Muñoz [facility] CM Progress Note CM Note CM Note Notes: Pt's toured [facility] yesterday and chose them. Faxed referral and spoke with Liz in admissions who agreed to accept tomorrow. Pt and would like AM DC. Alerted Powerback to pt's choice. Date Signed: 06/02/2017 10:26 AM Electronically Signed By:Elvi Duong LCSW [facility] CM Progress Note CM Note CM Note Notes: [facility] 10:[facility]. TRESA Beyer to call report. Orders sent in Allscripts. Pt is present for d/c. Date Signed: 06/03/2017 10:48 AM Electronically Signed By:JAY Muñoz Intervention Information Intervention Type:*IM-Signed Date of Service:06/03/2017 09:16 AM Patient Type:Inpatient Staff Member:Rhonda Hernandes Hours: Discipline: Severity: Comment:
--- NOTE | 2017-06-03 12:06 | ASDISCHSUM ---
Discharge Information Plan Status:SNF Medically Cleared to Leave: Discharge Date:06/03/2017 10:52 AM CM D/C Disposition:Group Home Facility ADT D/C Disposition:Group Home Facility Projected Discharge Date:06/01/2017 11:00 AM Transportation at D/C:Wheelchair Van Discharge Delay Reason: Follow-Up Date:06/01/2017 11:00 AM Discharge Slot: Final Diagnosis: Placement Information Referral Type:*Alf/SNF Referral ID:[id number] Provider Name:[facility] Address 1:[address] Address 2: City:[place] Selection Factors: State:[place] Patient Contact Information Contact Name:RAMONA Relationship: Address:[address] City:[place] Alternate Phone: State/Zip Code:[place] [address] Email: Financial Information Financial Class: Primary Plan Desc:MEDICARE INPATIENT Primary Plan Number:[id number] Secondary Plan Desc:[facility] Secondary Plan Number:[id number] Assessment Information [facility] CM Progress Note CM Note CM Note Notes: OT rec home, PT rec HHC vs. SNF. Spoke at length w pt and Aparna about d/c options. They described what was a traumatic time when pt last had surgery over 3 years ago when pt had a staph infection and pt only SNF option was [facility]. Pt interested in referral to [facility] and plans to tour. CM to follow. Date Signed: 05/30/2017 04:39 PM Electronically Signed By:JAY Muñoz [facility] CM Progress Note CM Note CM Note Notes: Pt's toured [email or web address] yesterday and chose them. Faxed referral and spoke with Liz in admissions who agreed to accept tomorrow. Pt and would like AM DC. Alerted Powerback to pt's choice. Date Signed: 06/02/2017 10:26 AM Electronically Signed By:Elvi Duong LCSW [facility] CM Progress Note CM Note CM Note Notes: [facility] 10:[facility]. TRESA Beyer to call report. Orders sent in Allscripts. Pt is present for d/c. Date Signed: 06/03/2017 10:48 AM Electronically Signed By:JAY Muñoz Intervention Information Intervention Type:*IM-Signed Date of Service:06/03/2017 09:16 AM Patient Type:Inpatient Staff Member:Rhonda Hernandes Hours: Discipline: Severity: Comment:
--- NOTE | 2017-06-03 12:06 | ASDISCHSUM ---
Discharge Information Plan Status:SNF Medically Cleared to Leave: Discharge Date:06/03/2017 10:52 AM CM D/C Disposition:Jail Facility ADT D/C Disposition:Jail Facility Projected Discharge Date:06/01/2017 11:00 AM Transportation at D/C:Wheelchair Van Discharge Delay Reason: Follow-Up Date:06/01/2017 11:00 AM Discharge Slot: Final Diagnosis: Placement Information Referral Type:*[facility]/SNF Referral ID:[id number] Provider Name:[facility] Address 1:[address] Address 2: City:[place] Selection Factors: State:[place] Patient Contact Information Contact Name:RAMONA Relationship: Address:[address] City:[place] Alternate Phone: State/Zip Code:[place] [address] Email: Financial Information Financial Class: Primary Plan Desc:MEDICARE INPATIENT Primary Plan Number:[id number] Secondary Plan Desc:[facility] Secondary Plan Number:[id number] Assessment Information [facility] CM Progress Note CM Note CM Note Notes: OT rec home, PT rec HHC vs. SNF. Spoke at length w pt and Aparna about d/c options. They described what was a traumatic time when pt last had surgery over 3 years ago when pt had a staph infection and pt only SNF option was [facility] [place]. Pt interested in referral to [facility] and plans to tour. CM to follow. Date Signed: 05/30/2017 04:39 PM Electronically Signed By:JAY Muñoz [facility] CM Progress Note CM Note CM Note Notes: Pt's toured [facility] yesterday and chose them. Faxed referral and spoke with Liz in admissions who agreed to accept tomorrow. Pt and would like AM DC. Alerted [employer] to pt's choice. Date Signed: 06/02/2017 10:26 AM Electronically Signed By:Elvi Duong LCSW [facility] CM Progress Note CM Note CM Note Notes: [facility] medically stable [email or web address] 10:40. TRESA Beyer to call report. Orders sent in Allscripts. Pt is present for d/c. Date Signed: 06/03/2017 10:48 AM Electronically Signed By:JAY Muñoz Intervention Information Intervention Type:*IM-Signed Date of Service:06/03/2017 09:16 AM Patient Type:Inpatient Staff Member:Rhonda Hernandes Hours: Discipline: Severity: Comment:
== END 2017-06-03 10:52 | DRG 460 ==
LOC: F3N 05:44
PROVIDERS: ADMIT Neurological Surgery; ATTEND Neurological Surgery
DX: M47.26 Other spondylosis with radiculopathy, lumbar region (principal); M51.36 Other intervertebral disc degeneration, lumbar region; M43.16 Spondylolisthesis, lumbar region; M48.061 Spinal stenosis, lumbar region without neurogenic claudication; M48.07 Spinal stenosis, lumbosacral region; G96.12 Meningeal adhesions (cerebral) (spinal); I48.2 Chronic atrial fibrillation; G47.33 Obstructive sleep apnea (adult) (pediatric); E11.9 Type 2 diabetes mellitus without complications; I25.10 Atherosclerotic heart disease of native coronary artery without angina pectoris; I12.9 Hypertensive chronic kidney disease with stage 1 through stage 4 chronic kidney disease, or unspecified chronic kidney disease; N18.9 Chronic kidney disease, unspecified; E78.5 Hyperlipidemia, unspecified; Z79.82 Long term (current) use of aspirin; Z95.810 Presence of automatic (implantable) cardiac defibrillator; Z98.1 Arthrodesis status; Z86.19 Personal history of other infectious and parasitic diseases; Z95.1 Presence of aortocoronary bypass graft
CPT/HCPCS: 97116-GP; 97161-GP; 97166-GO; 97535-GO; C1713; G8978-GP-CK; G8979-GP-CI; G8987-GO-CI; G8988-GO-CI; J0171; J0690; J1170; J1650; J1815; J2250; J2704; J3010

== ENCOUNTER → 2017-07-02 | Outpatient (CLI) | payer OTHER | LOC: FIMAGING 12:08 | PROVIDERS: ATTEND Physician Assistant | DX: Z47.89 Encounter for other orthopedic aftercare (principal); Z98.1 Arthrodesis status ==

== ENCOUNTER → 2017-07-23 | Outpatient (CLI) | payer OTHER | LOC: FIMAGING 12:22 | PROVIDERS: ATTEND Neurological Surgery | DX: Z98.1 Arthrodesis status (principal) ==

== ENCOUNTER 2017-10-13 08:48 | Inpatient (IN) | payer OTHER ==
--- NOTE | 2017-10-13 09:00 | EDPHY ---
H & P Stated Complaint: sob last night withhx afib Time Seen by Provider: 10/13/17 08:59 - Personal History Current Tetanus/Diphtheria Vaccine: Yes Tetanus Vaccine Date: < 10 YEARS - Medical/Surgical History Hx Asthma: No Hx Chronic Respiratory Disease: No Hx Diabetes: Yes Hx Cardiac Disease: Yes Hx Renal Disease: No Hx Cirrhosis: No Hx Alcoholism: No Hx HIV/AIDS: No Hx Splenectomy or Spleen Trauma: No Other PMH: diabetes type 2, HTN, JARRETT, uses CPAP at [facility], CAD, angioplasty, CABGx 3 vessels, hypercholesterolemia, DDD, rotator cuff repair, pacemaker - Social History Smoking Status: Former smoker Constitutional: Initial Vital Signs Temperature (C) 36.7 C 10/13/17 08:52 Heart Rate 98 10/13/17 08:52 Respiratory Rate 18 10/13/17 08:52 Blood Pressure 176/115 H 10/13/17 08:52 O2 Sat (%) 93 10/13/17 08:52 O2 Delivery Mode Nasal Cannula O2 (L/minute) 2 Allergies/Adverse Reactions: hydrocodone bitartrate [From [place]] Allergy (Severe, Verified 10/13/17 08:51) CONFUSION niacin Allergy (Verified 10/13/17 08:51) ITCHING,MUSCLE SORENESS, NAUSEA oxycodone Allergy (Verified 10/13/17 08:51) Other-Enter Comments antibiotic causing kidney/liver dis Allergy (Uncoded 05/21/17 17:42) Home Medications: Medication Instructions Recorded Atorvastatin Calcium [Lipitor 20 20 mg PO DAILY 09/15/12 mg (*)] Carvedilol [Coreg (*)] 25 mg PO BIDMEAL 09/15/12 Herbals/Supplements -Info Only 1 ea PO DAILY 03/01/14 [place]-3 Fatty Acids [Fish Oil 1000 3,000 mg PO DAILY 03/01/14 mg (*)] Allopurinol [Allopurinol 100 MG 450 mg PO DAILY 05/20/17 (*)] Aspirin [Aspirin 81mg (*)] 81 mg PO DAILY 05/20/17 Cyanocobalamin [Vitamin B12 (*)] 2,500 mcg PO DAILY 05/20/17 Dabigatran Etexilate Mesyl 150 mg PO BID 05/20/17 [Pradaxa 150 MG (*)] Ferrous Sulfate [Ferrous Sulf 325 325 mg PO DAILY 05/20/17 MG (*)] Gabapentin [Neurontin 300 MG (*)] 600 mg PO BID@,16 05/20/17 Gabapentin [Neurontin 300 MG (*)] 900 mg PO HS 05/20/17 Hydrochlorothiazide [HCTZ (*)] 12.5 mg PO DAILY 05/20/17 Multivitamins [Multivitamin (*)] 1 each PO DAILY 05/20/17 Valsartan [Diovan (*)] 320 mg PO DAILY 05/20/17 glipiZIDE [Glipizide] 5 mg PO BID 05/20/17 Acetaminophen [Tylenol ES 500 mg 1,000 mg PO Q8HRS tab 06/03/17 (*)] Methocarbamol [Robaxin 750 mg (*)] 750 mg PO QID PRN tab 06/03/17 Sennosides/Docusate Sodium 1 - 2 tab PO BID tab 06/03/17 [Senokot-S] Medical Decision Making - Diagnostics Imaging Results: Imaging Impressions Chest X-Ray 10/13/17 09:08 Impression: No evidence for acute cardiopulmonary abnormality. Stable chronic findings, as above. Imaging: I viewed and interpreted images myself ED Course/Re-evaluation: CHIEF COMPLAINT: Dyspnea HISTORY OF PRESENT ILLNESS: The patient is an anticoagulated 72 y/o male with multiple comorbidities arriving with his complaining of persistent dyspnea onset in the middle of the night several hours ago. His medical history includes atrial fibrillation, CHF, diabetes type 2, hypertension, He tried using his CPAP without improvement and ultimately came here for evaluation. Symptoms are worse when lying flat. He had similar symptoms previously a few years ago and was told it was due to CHF. He has not noticed rapid heart rate, but cannot usually tell if he is in atrial fibrillation or not. His pacemaker was evaluated in July and they told him he was in atrial fibrillation frequently. He denies recent illness or trauma. Notes his pacemaker battery is low and scheduled to be replaced in October. REVIEW OF SYSTEMS: A 10 point review of systems was performed and is negative with the exception of the elements mentioned in the history of present illness. PHYSICAL EXAM: HR, BP, O2 Sat, RR. Temp noted General Appearance: Alert, well hydrated, appropriate, and non-toxic appearing. Head: Atraumatic without scalp tenderness or obvious injury Eyes: Pupils equal, round, reactive to light and accommodation, EOMI, no trauma , no injection. Nose: Atraumatic, no rhinorrhea, clear. Throat: There is no erythema or exudates, no lesions, normal tonsils, mucus membranes moist. Neck: Supple, nontender, no lymphadenopathy. Respiratory: No retractions, no distress, no wheezes, and no accessory muscle use. Lungs have mild rales at the bases bilaterally to auscultation. Cardiovascular: Regular rate and rhythm, no murmurs, rubs, or gallops. Good capillary refill all extremities. Gastrointestinal: Abdomen is soft, nontender, non-distended, no masses, no rebound, no guarding, no peritoneal signs. Musculoskeletal: Normal active ROM of all extremities, atraumatic. Neurological: Alert, appropriate, and interactive. The patient has non-focal cranial nerves, motor, sensory, and cerebellar exam. Skin: No rashes, good turgor, no nodules on palpation. Past medical history: diabetes type 2, hypertension, obstructive sleep apnea with CPAP at night, CAD, hypercholesterolemia, DDD Past surgical history: Spinal fusion 2016; 3-vessel bypass surgery 1997; stent - Dr. Murillo; angioplasty; rotator cuff repair, pacemaker Family history: Noncontributory Social history: at bedside. 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 DIAGNOSTICS/PROCEDURES/CRITICAL CARE TIME: The 12 lead EKG was interpreted by myself. Atrial fibrillation rate 90, ventricular pacing, LBBB. See hard copy and/or "tracemaster" electronic copy for interpretation. Chest x-ray: nothing acute. DIFFERENTIAL DIAGNOSIS: The differential diagnosis for the patient's shortness of breath and hypoxemia included but was not limited to pneumonia, myocardial infarction, acute mountain sickness, high altitude pulmonary edema, congestive heart failure, and pulmonary embolus. MEDICAL DECISION MAKING: This is a 72 y/o male with multiple comorbidities who presents with several hours of persistent dyspnea and orthopnea. He has mild rales at the bases bilaterally. Presentation is most consistent with CHF. Plan for IV, labs, EKG, chest x-ray, and decrease afterload reduction with nitro drip to improve kidney perfusion to increase efficacy of diuresis with 20mg IV Lasix. Reassessed patient and discussed work up thus far. BNP 1090, troponin mildly elevated .041. Consistent with CHF. He is more comfortable since medication administration. Chest x-ray pending. Spoke with hospitalist service. Dr. Moon accepts admission to PCU for CHF, hypertension, atrial fibrillation, and elevated troponin. Consulted with Dr. Bullock, trade embalmer. He will consult during admission. - Data Points Laboratory Results: Laboratory Results 10/13/17 09:05 10/13/17 09:05 10/13/17 10/13/17 10/13/17 09:05 09:05 09:05 WBC 7.70 10^3/uL 10^3/uL (3.80-9.50) RBC 5.41 10^6/uL 10^6/uL (4.40-6.38) Hgb 17.9 g/dL H g/dL (13.7-17.5) Hct 52.6 % H % (40.0-51.0) MCV 97.2 fL fL (81.5-99.8) MCH 33.1 pg pg (27.9-34.1) MCHC 34.0 g/dL g/dL (32.4-36.7) RDW 14.2 % % (11.5-15.2) Plt Count 125 10^3/uL L 10^3/uL (150-400) MPV 9.7 fL fL (8.7-11.7) Neut % (Auto) 76.2 % H % (39.3-74.2) Lymph % (Auto) 11.8 % L % (15.0-45.0) [place] % (Auto) 8.7 % % (4.5-13.0) Eos % (Auto) 1.6 % % (0.6-7.6) Baso % (Auto) 0.8 % % (0.3-1.7) Nucleat RBC Rel Count 0.0 % % (0.0-0.2) Absolute Neuts (auto) 5.87 10^3/uL 10^3/uL (1.70-6.50) Absolute Lymphs (auto) 0.91 10^3/uL L 10^3/uL (1.00-3.00) Absolute Monos (auto) 0.67 10^3/uL 10^3/uL (0.30-0.80) Absolute Eos (auto) 0.12 10^3/uL 10^3/uL (0.03-0.40) Absolute Basos (auto) 0.06 10^3/uL 10^3/uL (0.02-0.10) Absolute Nucleated RBC 0.00 10^3/uL 10^3/uL (0-0.01) Immature Gran % 0.9 % % (0.0-1.1) Immature Gran # 0.07 10^3/uL 10^3/uL (0.00-0.10) PT 15.0 SEC SEC (12.0-15.0) INR 1.16 (0.83-1.16) APTT 38.3 SEC H SEC (23.0-38.0) Sodium 141 mEq/L mEq/L (135-145) Potassium 4.4 mEq/L mEq/L (3.5-5.2) Chloride 103 mEq/L mEq/L (97-110) Carbon Dioxide 24 mEq/l mEq/l (22-31) Anion Gap 14 mEq/L mEq/L (8-16) BUN 24 mg/dL H mg/dL (7-23) Creatinine 1.0 mg/dL mg/dL (0.7-1.3) Estimated GFR > 60 Glucose 140 mg/dL H mg/dL (70-100) Calcium 9.2 mg/dL mg/dL (8.5-10.4) Troponin I 0.041 ng/mL H ng/mL (0.000-0.034) NT-Pro-B Natriuret Pep 1090 pg/mL H pg/mL (0-125) Medications Given: Discontinued Medications Furosemide (Lasix Injection) 20 mg IVP EDNOW ONE Stop: 10/13/17 09:15 Last Admin: 10/13/17 09:30 Dose: 20 mg Nitroglycerin/Dextrose (Nitroglycerin 200 Mcg/Ml (Premix)) 250 mls @ 0 mls/hr IV CONT ONE; Titrate PRN Reason: Protocol Stop: 10/13/17 09:09 Last Admin: 10/13/17 09:30 Dose: 250 mls Departure - Departure Disposition: [facility] Inpatient Acute Clinical Impression: CHF - Congestive heart failure, Elevated troponin Atrial fibrillation Qualifiers: Atrial fibrillation type: unspecified Qualified Code(s): I48.91 - Unspecified atrial fibrillation Hypertension Qualifiers: Hypertension type: essential hypertension Qualified Code(s): I10 - Essential ( primary) hypertension Condition: Fair Report Scribed for: Jorge Branch Report Scribed by: Christina Chowdhury Date of Report: 10/13/17 Time of Report: 09:15
--- NOTE | 2017-10-13 09:03 | CPEKG ---
Heart Rate: 90 RR Interval: 667 QRSD Interval: 124 QT Interval: 372 QTC Interval: 455 QRS [place]: -62 T Wave [place]: 108 EKG Severity - ABNORMAL ECG - EKG Impression: AFIB/FLUT AND V-PACED COMPLEXES EKG Impression: LEFT BUNDLE BRANCH BLOCK Electronically Signed By: Jorge Branch 13-Oct-2017 12:17:24
[2017-10-13] MEDS ORDERED: NITROGLYCERIN/DEXTROSE 250 ML IV ONE (09:08)
[2017-10-13] MEDS ORDERED: FUROSEMIDE 20 MG/2 ML VIAL IVP ONE (09:14)
[2017-10-13 09:15] LABS: PLATELET COUNT 125 10^3/uL (150-400)
[2017-10-13 09:23] LABS: INR 1.16 (0.83-1.16)
[2017-10-13] MEDS ORDERED: ONDANSETRON DISINTEGRATING 4 MG TAB PO PRN (10:40)
[2017-10-13] MEDS ORDERED: ONDANSETRON 4 MG/2 ML VIAL IVP PRN (10:40)
--- NOTE | 2017-10-13 12:44 | PDCARCONS ---
Cardiology Consult Reason for Consult: Dyspnea. Chief Complaint: Single episode of nocturnal shortness of breath. Requesting Physician: Dr. Jorge Branch. History of Present Illness: 72-year-old male typically followed as an outpatient previously by Dr. Tomas Murillo and more recently by Dr. Rene Khan. He has an extensive cardiovascular history which is detailed in the HPI. He generally feels well. This last May he underwent an extensive lumbar/sacral spinal fusion. He has been recovering since and states he has been making steady progress. He does continue to have significant back pain. He was awakened from sleep last night at about 4 o'clock in the morning. He states he felt breathless. He had no chest discomfort, chest pain, chest pressure, heaviness and denies cough. He had no history of fever, chills or sweats. He has got out of bed and sat in a chair and tried to gradually relax. This resulted in a modest degree of improvement. He went back to bed and continued to be breathless. He had no real positional component to his dyspnea. He had no palpitations. He states he has not had similar symptoms in the past. He has been having his ICD followed at the [facility]. He was told several months ago that he was nearing a point where he should consider having this replaced and was asked to return in 6 months. He has obstructive sleep apnea and uses CPAP regularly. He has been taking his prescribed drugs without missing any doses. He notes that also during a previous visit in the ICD clinic he was told that he had had an increasing amount of atrial fibrillation noted on his device interrogation. History Information - Allergies/Home Medication List Allergies/Adverse Reactions: hydrocodone bitartrate [From [place]] Allergy (Severe, Verified 10/13/17 08:51) CONFUSION niacin Allergy (Verified 10/13/17 08:51) ITCHING,MUSCLE SORENESS, NAUSEA oxycodone Allergy (Verified 10/13/17 08:51) Other-Enter Comments antibiotic causing kidney/liver dis Allergy (Uncoded 05/21/17 17:42) Home Medications: Atorvastatin Calcium [Lipitor 20 mg (*)] 20 mg PO HS 09/15/12 [Last Taken 21:00] Carvedilol [Coreg (*)] 25 mg PO BIDMEAL 09/15/12 [Last Taken 10/13/17] Herbals/Supplements -Info Only 1 ea PO DAILY 03/01/14 [Last Taken 05/21/17] [place]-3 Fatty Acids [Fish Oil 1000 mg (*)] 3,000 mg PO DAILY 03/01/14 [Last Taken 05/21/17] Allopurinol [Allopurinol 100 MG (*)] 450 mg PO DAILY 05/20/17 [Last Taken ] Aspirin [Aspirin 81mg (*)] 81 mg PO HS 05/20/17 [Last Taken 10/12/17] Cyanocobalamin [Vitamin B12 (*)] 2,500 mcg PO DAILY 05/20/17 [Last Taken Unknown ] Dabigatran Etexilate Mesyl [Pradaxa 150 MG (*)] 150 mg PO BID 05/20/17 [Last Taken 10/13/17] Ferrous Sulfate [Ferrous Sulf 325 MG (*)] 325 mg PO DAILY 05/20/17 [Last Taken Unknown] Gabapentin [Neurontin 300 MG (*)] 900 mg PO TID 05/20/17 [Last Taken 05/28/17 21 :00] Hydrochlorothiazide [HCTZ (*)] 12.5 mg PO HS 05/20/17 [Last Taken 05/22/17] Multivitamins [Multivitamin (*)] 1 each PO HS 05/20/17 [Last Taken 05/21/17] Valsartan [Diovan (*)] 320 mg PO HS 05/20/17 [Last Taken 10/12/17] glipiZIDE [Glipizide] 5 mg PO BID 05/20/17 [Last Taken 10/13/17] Docusate Sodium [Colace 100 MG (*)] 200 mg PO HS 10/13/17 [Last Taken Unknown] Loratadine [Claritin 10 mg] 10 mg PO DAILY PRN 10/13/17 [Last Taken Unknown] I have personally reviewed and updated: family history, medical history, social history, surgical history Past Medical History: - Past Medical History Additional medical history: Coronary artery disease with previous 3 vessel bypass surgery [place] [address] Teodoro Davis, PCI of the [place] obtuse marginal branch in February of 2011 by Tomas Murillo, placement of a biventricular pacemaker defibrillator in July [address] Tomas Murillo , paroxysmal atrial fibrillation, history of ischemic cardiomyopathy with congestive heart failure, type 2 diabetes mellitus, chronic renal insufficiency with microalbumin area, obstructive sleep apnea using CPAP, history of osteomyelitis, history of pulmonary hypertension, chronic back pain with recent lumbar/sacral fusion. - Surgical History Additional surgical history: Lumbar/sacral fusion, bone graft to the right wrist , CABG, PCI/stenting, inguinal hernia repair, history of laminectomy, rotator cuff repair - Family History Additional family history: Noncontributory. - Social History Smoking Status: Former smoker Alcohol Use: Occasionally Drug Use: None Physical Exam Physical Exam: Temp Pulse Resp BP Pulse Ox 36.7 C 98 16 116/90 H 93 10/13/17 08:52 10/13/17 12:20 10/13/17 12:20 10/13/17 12:20 10/13/17 12:20 O2 (L/minute) 2 Constitutional: no apparent distress Ears, Nose, Mouth, Throat: moist mucous membranes Cardiovascular: irregularly irregular, other (ICD in the left infraclavicular fossa), No no murmur, rub, or gallop, No systolic murmur Peripheral Pulses: 2+: carotid (R), carotid (L) Respiratory: no respiratory distress, no rales or rhonchi, clear to auscultation Gastrointestinal: normoactive bowel sounds, soft, non-tender abdomen, no palpable masses Skin: warm, normal color, No mottled Neurologic: AAOx3 Lab and Imaging 10/13/17 09:05 10/13/17 09:05 WBC 7.70 10^3/uL (3.80-9.50) 10/13/17 09:05 RBC 5.41 10^6/uL (4.40-6.38) 10/13/17 09:05 Hgb 17.9 g/dL (13.7-17.5) H 10/13/17 09:05 Hct 52.6 % (40.0-51.0) H 10/13/17 09:05 MCV 97.2 fL (81.5-99.8) 10/13/17 09:05 MCH 33.1 pg (27.9-34.1) 10/13/17 09:05 MCHC 34.0 g/dL (32.4-36.7) 10/13/17 09:05 RDW 14.2 % (11.5-15.2) 10/13/17 09:05 Plt Count 125 10^3/uL (150-400) L 10/13/17 09:05 MPV 9.7 fL (8.7-11.7) 10/13/17 09:05 Neut % (Auto) 76.2 % (39.3-74.2) H 10/13/17 09:05 Lymph % (Auto) 11.8 % (15.0-45.0) L 10/13/17 09:05 [place] % (Auto) 8.7 % (4.5-13.0) 10/13/17 09:05 Eos % (Auto) 1.6 % (0.6-7.6) 10/13/17 09:05 Baso % (Auto) 0.8 % (0.3-1.7) 10/13/17 09:05 Nucleat RBC Rel Count 0.0 % (0.0-0.2) 10/13/17 09:05 Absolute Neuts (auto) 5.87 10^3/uL (1.70-6.50) 10/13/17 09:05 Absolute Lymphs (auto) 0.91 10^3/uL (1.00-3.00) L 10/13/17 09:05 Absolute Monos (auto) 0.67 10^3/uL (0.30-0.80) 10/13/17 09:05 Absolute Eos (auto) 0.12 10^3/uL (0.03-0.40) 10/13/17 09:05 Absolute Basos (auto) 0.06 10^3/uL (0.02-0.10) 10/13/17 09:05 Absolute Nucleated RBC 0.00 10^3/uL (0-0.01) 10/13/17 09:05 Immature Gran % 0.9 % (0.0-1.1) 10/13/17 09:05 Immature Gran # 0.07 10^3/uL (0.00-0.10) 10/13/17 09:05 PT 15.0 SEC (12.0-15.0) 10/13/17 09:05 INR 1.16 (0.83-1.16) 10/13/17 09:05 APTT 38.3 SEC (23.0-38.0) H 10/13/17 09:05 Sodium 141 mEq/L (135-145) 10/13/17 09:05 Potassium 4.4 mEq/L (3.5-5.2) 10/13/17 09:05 Chloride 103 mEq/L (97-110) 10/13/17 09:05 Carbon Dioxide 24 mEq/l (22-31) 10/13/17 09:05 Anion Gap 14 mEq/L (8-16) 10/13/17 09:05 BUN 24 mg/dL (7-23) H 10/13/17 09:05 Creatinine 1.0 mg/dL (0.7-1.3) 10/13/17 09:05 Estimated GFR > 60 10/13/17 09:05 Glucose 140 mg/dL (70-100) H 10/13/17 09:05 Calcium 9.2 mg/dL (8.5-10.4) 10/13/17 09:05 Troponin I 0.041 ng/mL (0.000-0.034) H 10/13/17 09:05 NT-Pro-B Natriuret Pep 1090 pg/mL (0-125) H 10/13/17 09:05 Visualized and Interpreted Chest x-ray results: Yes Chest X-ray Interpretation: no infiltrate, other (No evidence of CHF, previous biventricular pacemaker/defibrillator) Visualized and Interpreted imaging results: Yes Visualized and Interpreted EKG results: Yes EKG additional interpertation: Atrial fibrillation, atrial tracking with ventricular pacing. Telemetry: Atrial fibrillation with ventricular pacing. Echocardiogram: There is a separately dictated report on the chart A/P Assessment: 72-year-old male with an extensive cardiovascular history is detailed above. He presents to the emergency department now with a single episode of breathlessness that occurred last night. This certainly raises the question of congestive heart failure as the etiology. His brain atretic peptide level is slightly elevated. His exam and chest x-ray findings really are not consistent with overt pulmonary edema. There is no indication of an infectious process. The troponin is slightly elevated raising the question of recurrent ischemia. There is, however, no indication of an acute myocardial infarction at the present time. Pulmonary embolism is less likely as he has been compliant with his systemic anticoagulation. He recently had back surgery although he appears to be doing well with respect to this procedure. He is in atrial fibrillation and I wonder if some of his symptoms might be result of increasing frequency and duration of atrial fibrillation events. Plan: 1.He will be admitted to telemetry and monitored. 2. He has been started on intravenous Lasix. 3. He will continue his outpatient medications. 4. We will plan to cycle his cardiac enzymes. 5. I would like to have his ICD interrogated in the morning to get a better idea of his overall burden of atrial arrhythmias in the overall function of his device. 6. Depending on his clinical course we may consider proceeding to coronary angiography.
--- NOTE | 2017-10-13 12:57 | ECHO ---
[email or web address] [address] Main: [phone] Fax: [email or web address] Echocardiogram Name: CRISTOBAL LING MR#: [id number] Study Date: 10/13/2017 Study Time: 12:16 PM Date of : 1945 Age: 72 year(s) Height: 175.3 cm (69 in.) Weight: 99.79 kg (220 lb.) BSA: 2.15 m2 Gender: Male Examination: Echo Indication: eval EF, RVSP, wall motion; h/o chf, cabg, Atrial Fibrillation, pacemaker Image Quality: Technically Difficult Contrast: Requested by: Lucio Cunningham BP: 106 mmHg/67 mmHg Heart Rate: Rhythm: Indication: eval EF, RVSP, wall motion; h/o chf, cabg, Atrial Fibrillation, pacemaker Procedure Staff Senior [employer] Developer: Jany Mendoza [facility] Reading Physician: Ayan Bullock MD Requesting Provider: Conclusions: Normal size left ventricle. Mild concentric LV hypertrophy. Mildly reduced systolic LV function. EF is 45 %. Focal area of akinesis involving the apical anterior and apical inferoseptum. There is a ICD/Pacer wire noted in the right ventricle. Trivial mitral valve regurgitation. There is no tricuspid valve regurgitation. Measurements: Chambers Valvular Assessment AV/MV Valvular Assessment TV/PV Normal Normal Normal Name Value Range Name Value Range Name Value Range Ao Rachel (MM): 3.7 cm (2.2 cm-3.7 AV Vmax: 1.19 m/s (1 m/s-1.7 PV Vmax: 0.98 m/s (0.6 m/s-0.9 cm) m/s) m/s) IVSd (2D): 1.1 cm (0.6 cm-1.1 AV maxP mmHg ( - ) PV PGmax: 4 mmHg ( - ) cm) LVOT Vmax: 0.89 m/s (0.7 m/s-1.1 LVDd (2D): 4.9 cm (4.2 cm-5.9 m/s) cm) MV E Vmax: 0.75 m/s ( - ) LVDs (2D): 3.9 cm (2.1 cm-4 cm) LVPWd (2D): 1.2 cm (0.6 cm-1 cm) LVEF (BP): 45 % (>=55 %) Continued Measurements: Chambers Name Value Patient: CRISTOBAL LING Study Date: 10/13/2017 Page 1 of 2 12:16 PM LADs: 3.8 cm LADs Lon.8 cm LA Area: 20.8 cm2 LA Volume: 69 ml LA Volume Index: 32.1 ml/m2 Findings: Left Ventricle: Normal size left ventricle. Mild concentric LV hypertrophy. Mildly reduced systolic LV function. EF is 45 %. Unable to assess diastolic dysfunction. Focal area of akinesis involving the apical anterior and apical inferoseptum. Right Ventricle: Normal size right ventricle. Normal RV function. There is a ICD/Pacer wire noted in the right ventricle. Left Atrium: The left atrium is normal in size. Right Atrium: The right atrium is normal in size. Mitral Valve: The mitral valve is normal in appearance and function. Trivial mitral valve regurgitation. No mitral stenosis is present. Aortic Valve: The aortic valve is tri-leaflet and functions normally. There is no aortic valve regurgitation. No aortic valve stenosis is present. Tricuspid Valve: The tricuspid valve is normal in appearance and function. There is no tricuspid valve regurgitation. Pulmonary artery pressure is not obtained due to inadequate TR jet. Pulmonic Valve: Pulmonary valve not well visualized. Aorta: Normal size aortic root measuring 3.7 cm. Pericardium: No pericardial effusion. (No Signature Object) Patient: CRISTOBAL LING Study Date: 10/13/2017 Page 2 of 2 12:16 PM [id number]
[2017-10-13] MEDS ORDERED: METHOCARBAMOL 750 MG TAB PO PRN (13:01)
[2017-10-13] MEDS ORDERED: D50W 25 GM/50 ML VIAL IVP PRN (13:02)
--- NOTE | 2017-10-13 14:49 | PDGENHP ---
History and Physical - Chief Complaint Acute shortness of breath - History of Present Illness Primary care provider: Dr. Alba Melendez Primary rn support services: Dr. Rene Khan HPI: 72-year-old male presenting with acute shortness of breath characterized as sudden onset difficulty breathing with onset of symptoms on the evening prior to this presentation and duration persistent thereafter. The patient reports that the symptoms began after he awoke from sleeping due to loud noise produced by his CPAP mask. The patient removed the mask in attempted to fall back asleep. He was unable to fall back asleep secondary to this new shortness of breath. He is able to somewhat alleviate the symptoms by sitting upright and sitting at his dining room table. He also reports that the symptoms are somewhat alleviated by supplemental oxygen in the emergency department. He denies any chest pain or palpitations, and denies any recent infectious symptoms. The patient does endorse that over the past several months he has not felt 100% after undergoing lumbar spine fusion. He also experienced what he and his characterized as the flu in July 2017 and they receive Tamiflu. The patient reports that he has actually lost weight since the initial weight gain after the lumbar fusion in June, and he has not experienced recent increases in his lower extremity edema. Over the past several months he has had reduction in his valsartan and hydrochlorothiazide dosing, but recently had his valsartan dosage increased back up to baseline. He reports that his previous anginal symptom was severe left shoulder pain, and he has not experienced this recently. History Information - Allergies/Home Medication List Allergies/Adverse Reactions: hydrocodone bitartrate [From [place]] Allergy (Severe, Verified 10/13/17 08:51) CONFUSION niacin Allergy (Verified 10/13/17 08:51) ITCHING,MUSCLE SORENESS, NAUSEA oxycodone Allergy (Verified 10/13/17 08:51) Other-Enter Comments antibiotic causing kidney/liver dis Allergy (Uncoded 05/21/17 17:42) Home Medications: Atorvastatin Calcium [Lipitor 20 mg (*)] 20 mg PO HS 09/15/12 [Last Taken 21:00] Carvedilol [Coreg (*)] 25 mg PO BIDMEAL 09/15/12 [Last Taken 10/13/17] Herbals/Supplements -Info Only 1 ea PO DAILY 03/01/14 [Last Taken 05/21/17] Condon-3 Fatty Acids [Fish Oil 1000 mg (*)] 3,000 mg PO DAILY 03/01/14 [Last Taken 05/21/17] Allopurinol [Allopurinol 100 MG (*)] 450 mg PO DAILY 05/20/17 [Last Taken ] Aspirin [Aspirin 81mg (*)] 81 mg PO HS 05/20/17 [Last Taken 10/12/17] Cyanocobalamin [Vitamin B12 (*)] 2,500 mcg PO DAILY 05/20/17 [Last Taken Unknown ] Dabigatran Etexilate Mesyl [Pradaxa 150 MG (*)] 150 mg PO BID 05/20/17 [Last Taken 10/13/17] Ferrous Sulfate [Ferrous Sulf 325 MG (*)] 325 mg PO DAILY 05/20/17 [Last Taken Unknown] Gabapentin [Neurontin 300 MG (*)] 900 mg PO TID 05/20/17 [Last Taken 05/28/17 21 :00] Hydrochlorothiazide [HCTZ (*)] 12.5 mg PO HS 05/20/17 [Last Taken 05/22/17] Multivitamins [Multivitamin (*)] 1 each PO HS 05/20/17 [Last Taken 05/21/17] Valsartan [Diovan (*)] 320 mg PO HS 05/20/17 [Last Taken 10/12/17] glipiZIDE [Glipizide] 5 mg PO BID 05/20/17 [Last Taken 10/13/17] Docusate Sodium [Colace 100 MG (*)] 200 mg PO HS 10/13/17 [Last Taken Unknown] Loratadine [Claritin 10 mg] 10 mg PO DAILY PRN 10/13/17 [Last Taken Unknown] I have personally reviewed and updated: family history, medical history, social history, surgical history - Past Medical History Additional medical history: Coronary artery disease with previous 3 vessel bypass surgery back [place] [address] Teodoro Davis, PCI of the [place] [employer] obtuse marginal branch in February of 2011 by Tomas Murillo, placement of a biventricular pacemaker defibrillator in July of [address] Tomas Murillo , paroxysmal atrial fibrillation, history of ischemic cardiomyopathy with congestive heart failure, type 2 diabetes mellitus, chronic renal insufficiency with microalbumin area, obstructive sleep apnea using CPAP, history of osteomyelitis, history of pulmonary hypertension, chronic back pain with recent lumbar/sacral fusion. - Surgical History Additional surgical history: Lumbar/sacral fusion, bone graft to the right wrist , CABG, PCI/stenting, inguinal hernia repair, history of laminectomy, rotator cuff repair - Family History Additional family history: Family history of premature coronary disease, with influenza in July 2017 - Social History Smoking Status: Former smoker Alcohol Use: Occasionally Drug Use: None Additional social history: Normally independent in his ADLs neto was otherwise physically feeling well and at his baseline on the day prior to presentation Review of Systems Review of Systems: ROS: 10pt was reviewed & negative except for what was stated in HPI & below Respiratory: Reports: shortness of breath Physical Exam Physical Exam: Temp Pulse Resp BP Pulse Ox 37.1 C 99 18 111/62 95 10/13/17 14:40 10/13/17 14:40 10/13/17 14:40 10/13/17 14:40 10/13/17 14:40 O2 (L/minute) 2 Constitutional: no apparent distress, not in pain, obese, No uncomfortable Eyes: PERRL, anicteric sclera, EOMI Ears, Nose, Mouth, Throat: moist mucous membranes, hearing normal, ears appear normal, no oral mucosal ulcers Cardiovascular: irregularly irregular, tachycardia, edema (Trace bilateral lower extremities), No systolic murmur, No JVD Respiratory: expiratory wheeze (Faint bilaterally), inspiratory crackles (Faint bilateral bases), No reduced air movement, No bronchial breath sounds, No respiratory distress Gastrointestinal: normoactive bowel sounds, soft, non-tender abdomen, no palpable masses, No distension Neurologic: AAOx3, sensation intact bilaterally, No weakness Psychiatric: interacting appropriately, not anxious, not encephalopathic, thought process linear Lab Data & Imaging Review 10/13/17 09:05 10/13/17 09:05 WBC 7.70 10^3/uL (3.80-9.50) 10/13/17 09:05 RBC 5.41 10^6/uL (4.40-6.38) 10/13/17 09:05 Hgb 17.9 g/dL (13.7-17.5) H 10/13/17 09:05 Hct 52.6 % (40.0-51.0) H 10/13/17 09:05 MCV 97.2 fL (81.5-99.8) 10/13/17 09:05 MCH 33.1 pg (27.9-34.1) 10/13/17 09:05 MCHC 34.0 g/dL (32.4-36.7) 10/13/17 09:05 RDW 14.2 % (11.5-15.2) 10/13/17 09:05 Plt Count 125 10^3/uL (150-400) L 10/13/17 09:05 MPV 9.7 fL (8.7-11.7) 10/13/17 09:05 Neut % (Auto) 76.2 % (39.3-74.2) H 10/13/17 09:05 Lymph % (Auto) 11.8 % (15.0-45.0) L 10/13/17 09:05 Cedar % (Auto) 8.7 % (4.5-13.0) 10/13/17 09:05 Eos % (Auto) 1.6 % (0.6-7.6) 10/13/17 09:05 Baso % (Auto) 0.8 % (0.3-1.7) 10/13/17 09:05 Nucleat RBC Rel Count 0.0 % (0.0-0.2) 10/13/17 09:05 Absolute Neuts (auto) 5.87 10^3/uL (1.70-6.50) 10/13/17 09:05 Absolute Lymphs (auto) 0.91 10^3/uL (1.00-3.00) L 10/13/17 09:05 Absolute Monos (auto) 0.67 10^3/uL (0.30-0.80) 10/13/17 09:05 Absolute Eos (auto) 0.12 10^3/uL (0.03-0.40) 10/13/17 09:05 Absolute Basos (auto) 0.06 10^3/uL (0.02-0.10) 10/13/17 09:05 Absolute Nucleated RBC 0.00 10^3/uL (0-0.01) 10/13/17 09:05 Immature Gran % 0.9 % (0.0-1.1) 10/13/17 09:05 Immature Gran # 0.07 10^3/uL (0.00-0.10) 10/13/17 09:05 PT 15.0 SEC (12.0-15.0) 10/13/17 09:05 INR 1.16 (0.83-1.16) 10/13/17 09:05 APTT 38.3 SEC (23.0-38.0) H 10/13/17 09:05 Sodium 141 mEq/L (135-145) 10/13/17 09:05 Potassium 4.4 mEq/L (3.5-5.2) 10/13/17 09:05 Chloride 103 mEq/L (97-110) 10/13/17 09:05 Carbon Dioxide 24 mEq/l (22-31) 10/13/17 09:05 Anion Gap 14 mEq/L (8-16) 10/13/17 09:05 BUN 24 mg/dL (7-23) H 10/13/17 09:05 Creatinine 1.0 mg/dL (0.7-1.3) 10/13/17 09:05 Estimated GFR > 60 10/13/17 09:05 Glucose 140 mg/dL (70-100) H 10/13/17 09:05 Calcium 9.2 mg/dL (8.5-10.4) 10/13/17 09:05 Troponin I 0.041 ng/mL (0.000-0.034) H 10/13/17 09:05 NT-Pro-B Natriuret Pep 1090 pg/mL (0-125) H 10/13/17 09:05 Triglycerides 107 mg/dL (40-150) 10/13/17 14:10 Cholesterol 129 mg/dL (140-220) L 10/13/17 14:10 Cholesterol Risk Factr 0.4 (0.2-1.0) 10/13/17 14:10 LDL Cholesterol, Calc 51 mg/dL (80-100) L 10/13/17 14:10 LDL Risk Factor 0.5 (0.2-1.0) 10/13/17 14:10 VLDL Cholesterol 21 mg/dL (8-25) 10/13/17 14:10 Non-HDL Cholesterol 72 mg/dL (90-129) L 10/13/17 14:10 HDL Cholesterol 57 mg/dL (40-65) 10/13/17 14:10 LDL/HDL Ratio 0.89 RATIO (1.00-3.64) L 10/13/17 14:10 Cholesterol/HDL Ratio 2.26 RATIO (1.00-4.97) 10/13/17 14:10 Visualized and Interpreted Chest x-ray results: Yes Chest X-Ray results: other (Faint interstitial infiltrates) Visualized and Interpreted EKG results: Yes EKG Interpretation: Positive for: other (Atrial fibrillation, several paced beats, Q-wave in lead 3, intraventricular conduction delay) Assessment & Plan Assessment: 72-year-old male presents with acute shortness of breath in the setting of likely systolic and diastolic congestive heart failure exacerbation and rapid atrial fibrillation Plan: 1. Likely acute systolic and diastolic congestive heart failure exacerbation. Evidenced by elevated BNP, interstitial infiltrates on chest x-ray, elevated troponin level indicating increased risk of worsening morbidity and/or mortality with symptomatic shortness of breath -suspect this is secondary to dietary indiscretion with the patient consuming a diet rich in salt and him utilizing an inadequate diuretic -received Lasix 20 mg IV in the emergency department, will continue with 40 mg IV twice daily, blood pressure permitting -most recent echocardiogram in our system is from 2013 demonstrating ejection fraction of 40%, diastolic dysfunction, basilar/inferolateral hypokinesis with reduced RV function and RVSP of 56, repeat echocardiogram now -order outside records including most recent nuclear medicine stress testing from [facility] as well as echocardiogram preceding his lumbar fusion in June of 2017 -monitor atrial fibrillation rate on telemetry given the possibility that an uncontrolled rate may be contributing to his current exacerbation -get respiratory viral panel to ensure the patient is not experiencing concomitant viral syndrome which may also be affecting his presentation -appreciate Cardiology consultation 2. Atrial fibrillation. Paroxysmal, EKG demonstrating that he is currently in AFib, his current rate is between 100-110, possibly escalated in the setting of CHF or possibly contributing to the cause -continue home Coreg 25 twice daily -monitor on telemetry -continue Pradaxa -if it is determined that the AFib may be reducing cardiac output further after we have noted his current ejection fraction, consideration may be made towards cardioverted 3. Obstructive sleep apnea. Continue CPAP at night 4. Coronary artery disease. Chronic, reviewed outside records including medicine consultation by Dr. Eliezer Novak from 05/29/2017, characterizing patient's history of CAD with CABG back in 1997, on Coreg, valsartan, hydrochlorothiazide at that time 5. Diabetes mellitus type 2. Continue home medication Diet. Cardiac Prophylaxis. High risk patient, currently on Pradaxa Code. Full per patient, is MD POA Disposition. Anticipated discharge uncertain this time, anticipated length stay greater than 48 hr warranting inpatient admission status for reasonable medical necessity including likely acute CHF exacerbation requiring further workup cardiology consultation and treatment with IV diuretics. I have discussed patient's presentation with Dr. Alfred Soni, he has signed out the patient to me for evaluation.
--- NOTE | 2017-10-13 16:29 | PDMN ---
Medical Necessity Medical necessity: C/M review: est. > 2 MN LOS for eval and TX of acute kilely systolic and diastolic CHF exacerbation, shortness of breath, rapid atrial fibrillation, requiring Cardiology consult, ongoing IV Lasix, Duonebs, cardiac monitoring, pulse oximetry, supplemental O2, comorbid suspect CHF exacerbation secondary to dietary indiscretion with the patient consuming a diet rich in salt and utilizing an inadequate diuretic, JARRETT on CPAP at night, CAD, history of CABG, PCI, placement of biventricular pacemaker defibrillator in 07/2011, ischemic cardiomyopathy, CHF, chronic renal insufficiency, pulmonary hypertension, chronic back pain with recent lumbar/sacral fusion,. osteomyelitis ,type 2 diabetes per H/P.
[2017-10-13] MEDS: IPRATROPIUM/ALBUTEROL 3 ML DEYVIAL IH SCH ×2 (16:59→19:37)
[2017-10-13] MEDS: GABAPENTIN 300 MG CAP PO SCH ×2 (17:20→21:00)
[2017-10-13] MEDS: glipiZIDE 5 MG TAB PO SCH (17:20)
[2017-10-13] MEDS: CARVEDILOL 25 MG TAB PO SCH (17:20)
[2017-10-13] MEDS: FUROSEMIDE 40 MG/4 ML VIAL IVP SCH (17:21)
[2017-10-13] MEDS ORDERED: HYDROCHLOROTHIAZIDE 12.5 MG CAP PO SCH (21:00)
[2017-10-13] MEDS ORDERED: VALSARTAN 160 MG TAB PO SCH (21:00)
[2017-10-13] MEDS: DABIGATRAN ETEXILATE MESYL 150 MG CAP PO SCH (21:00)
[2017-10-13] MEDS ORDERED: ATORVASTATIN CALCIUM 20 MG TAB PO SCH (21:00)
[2017-10-13] MEDS ORDERED: DOCUSATE SODIUM 100 MG CAP PO SCH (21:00)
[2017-10-13] MEDS ORDERED: ASPIRIN 81 MG CHEWABLE TAB PO SCH (21:00)
[2017-10-14] MEDS: ACETAMINOPHEN 325 MG TAB PO PRN ×2 (03:39→08:35)
[2017-10-14 03:59] LABS: PLATELET COUNT 110 10^3/uL (150-400)
[2017-10-14] MEDS: IPRATROPIUM/ALBUTEROL 3 ML DEYVIAL IH SCH (05:20)
[2017-10-14] MEDS: FUROSEMIDE 40 MG/4 ML VIAL IVP SCH (08:28)
[2017-10-14] MEDS: GABAPENTIN 300 MG CAP PO SCH (08:29)
[2017-10-14] MEDS: DABIGATRAN ETEXILATE MESYL 150 MG CAP PO SCH (08:30)
[2017-10-14] MEDS: glipiZIDE 5 MG TAB PO SCH (08:30)
[2017-10-14] MEDS: CARVEDILOL 25 MG TAB PO SCH (08:30)
[2017-10-14] MEDS ORDERED: IPRATROPIUM/ALBUTEROL 3 ML DEYVIAL IH PRN (08:59)
[2017-10-14] MEDS ORDERED: CETIRIZINE 10 MG TAB PO PRN (09:00)
[2017-10-14] MEDS ORDERED: OMEGA-3 FATTY ACIDS 1,000 MG CAP PO SCH (09:00)
[2017-10-14] MEDS ORDERED: FERROUS SULFATE 325 MG TAB PO SCH (09:00)
[2017-10-14] MEDS ORDERED: ALLOPURINOL 300 MG TAB PO SCH (09:00)
[2017-10-14] MEDS ORDERED: CYANO/VITAMIN B12 1000 MCG TAB PO SCH (09:00)
--- NOTE | 2017-10-14 11:19 | PDCARPN ---
Cardiology Progress Note Chief Complaint: SOB Assessment/Plan: Assessment: 1. SOB/ Orthopnea 2. Chronic Afib with AVG rate of 92 bpm (sub optimal control) 3. Elevated BNP ( I think due to Afib) 4. Mild Troponin elevation with peak troponin of 0.041 5. HX of CAD sp CABG in 1997 and PCI in 2010 6. Bi V ICD in place (nearing DANN) Plan: -Increase Coreg to 37.5 mg bid to improve rate control -change to oral lasix 20 mg daily -repeat troponin, in the absence of symptoms, would not pursue [facility] at this time -scheduled for out patient ICD check next month at [facility] 10/14/17 11:20 Subjective: Mr. Stiles is a 72 year old gentleman with hx of CAD sp CABG in 1997, PCI to OM in 2010, Hx of BiV ICD, Atrial Fibriilation, JARRETT on CPAP and recent spinal fusion surgery in May 2017 admitted on October 13, 2017 with complaints of onset of shortness of breath worse with lying down that persisted for approx 2 hours and resolved. He denies any complaints of chest pain, pressure or tightness. He feels back to baseline. hemodyanamically stable. ICD interrogation demonstrates chronic Afib with avg rate of 92 bpm (sub optimally controlled) Labwork notable for bnp OF 1090. Troponin trending from 0.031 to 0.037 to 0.041. He remains asymptomatic Reviewed/Discussed With: hospitalist Objective: Vital Signs (8 Hrs) Temp Pulse Resp BP Pulse Ox 10/14/17 07:36 37.1 C 90 17 118/84 H 95 10/14/17 04:23 36.4 C 91 15 152/97 H 94 Intake/Output (24 Hrs) 10/13/17 10/14/17 10/15/17 05:59 05:59 05:59 Intake Total 1616 750 Output Total 1700 450 Balance -84 300 Intake: Oral (ml) 1600 750 IV Infused (ml) 16 Output: Urine (ml) 1700 450 Urinal 1700 450 Other: Weight 100 kg 99.2 kg Number of Voids 2 Urinal 1 1 Result Diagrams: 10/14/17 03:30 10/14/17 03:30 Cardiac Labs: Cardiac Lab Results (72 Hrs) 10/13/17 10/13/17 21:50 14:10 Troponin I 0.031 0.037 H - Physical Exam Constitutional: WDWN, no apparent distress Ears, Nose, Mouth, Throat: moist mucous membranes Cardiovascular: no murmurs, no rubs, no gallops, irregularly irregular Respiratory: clear to auscultate bilat Musculoskeletal: no muscular tenderness Neurologic: AAOx3, CN II-XII grossly intact Psychiatric: cooperative, interactive, following commands, not anxious ICD10 Worksheet Patient Problems: Problems Problem Status Onset Atrial fibrillation Acute CHF - Congestive heart failure Acute Elevated troponin Acute Hypertension Acute CAD - Coronary arteriosclerosis Active Chronic obstructive lung disease Active Arthrodesis status Acute Lumbar radicular pain Acute Lumbar stenosis Acute
[2017-10-14 11:29] VITALS: BP 117/70; RESP 10; TEMP 97.4
--- NOTE | 2017-10-14 15:29 | PDDCSUM ---
Discharge Summary Discharge Summary: DISCHARGE SUMMARY FOLLOW-UP ITEMS: Follow-up creatinine BUN and lytes next week BiV ICD generator change DATE OF ADMISSION: 10/13/2017 DATE OF DISCHARGE: 10/14/2017 DISCHARGE DIAGNOSES: 1. Likely acute diastolic congestive heart failure exacerbation 2. Permanent atrial fibrillation 3. Abnormal troponin level CONSULTATIONS: Cardiology Dr. Rene Khan PROCEDURES / IMAGING: Echocardiogram demonstrating ejection fraction of 45% with akinesis in the apical anterior and inferior septum and concentric LVH CHIEF COMPLAINT: Acute shortness of breath SUBJECTIVE: Patient is asymptomatic at time of discharge, ambulating safely PHYSICAL EXAM ON DISCHARGE: Systolic blood pressure is 101-150, heart rate 90, satting well on room air, 92% , afebrile overnight, lungs are clear to auscultation bilaterally, heart rhythm is irregularly irregular, lower extremities demonstrate trace edema LABS ON DISCHARGE: Potassium 3.8, creatinine 1.1, liver panel unremarkable, hemoglobin A1c 6.4%, LDL 51, RVP negative, troponin level normalized, hemoglobin 16.6 HOSPITAL COURSE BY PROBLEM: The patient presented with acute shortness of breath, and the possible etiology is acute diastolic congestive heart failure exacerbation which was rapidly alleviated with IV Lasix. The patient had been on hydrochlorothiazide prior to admission, but had not followed a low-salt diet and had had fluctuating weights and volume status following a recent lumbar surgery. The patient received Lasix and now that he has effectively diuresed and euvolemic, he is being adjusted to oral Lasix with supplemental potassium and outpatient lab monitoring. An echocardiogram demonstrated no significant changes from prior, and he had a cardiac stress test within the past several months prior to his lumbar spine surgery. Consequently, his mildly abnormal troponin level on presentation was interpreted as secondary to myocardial strain in the setting of CHF, and not overt ischemia from obstructive coronary disease. The patient does have evidence of suboptimal rate control of his permanent atrial fibrillation, with interrogation demonstrating heart rates in the 90-100 range. Consequently, his carvedilol was up titrated to 37.5 mg twice daily, and he will require a biventricular ICD generator change in the near future. He will have his average rates reassessed at that time. He is currently off of supplemental oxygen cause asymptomatic, and is safe for discharge with outpatient follow-up. DISCHARGE MEDICATIONS: Please see official discharge medication reconciliation sheet in chart , up titration of carvedilol 37.5 mg twice daily, Lasix 20 mg daily with 10 mEq of supplemental potassium, continue all other home medications with the discontinuation of hydrochlorothiazide. DISCHARGE INSTRUCTIONS: Please follow up with Dr. Rene Khan in 1 week, with labs prior to that appointment. TIME SPENT: Greater than 30 minutes were spent on direct patient care, as well as discharge planning and preparation. The patient's condition improved much more rapidly than originally anticipated by this admitting provider, and now that his condition has stabilized in such a rapid and unanticipated way, he is appropriate for discharge home at this time.
[2017-10-14 15:53] VITALS: PULSE 107; O2SAT 93
--- NOTE | 2017-10-14 16:06 | ASMTLACE ---
ADAM Length of stay for Answers: 1 day current admission Acuity / Level of Answers: Yes Care: Did the patient have an inpatient admission? Comorbidities - select Answers: Chronic pulmonary disease all that apply Congestive heart failure Coronary Artery Disease Diabetes (uncontrolled or controlled) Mild liver or renal disease Opioid dependence / Chronic pain Other Notes: HTN, AFIB, elevated tro p # of Emergency department Answers: 1-2 visits in the last 6 months Score: 19 Date Signed: 10/14/2017 04:05 PM Electronically Signed By:Angela Segura RN
--- NOTE | 2017-10-14 17:08 | ASDISCHSUM ---
Discharge Information Plan Status:Home with No Needs Medically Cleared to Leave:10/14/2017 Discharge Date:10/14/2017 05:08 PM CM D/C Disposition:Home, Routine, Self-Care ADT D/C Disposition:Home, Routine, Self-Care Projected Discharge Date:10/14/2017 05:08 PM Transportation at D/C: Discharge Delay Reason: Follow-Up Date:10/14/2017 05:08 PM Discharge Slot: Final Diagnosis: Placement Information Patient Contact Information Contact Name:RAMONA Relationship: Address:[address] City:[place] Alternate Phone: State/Zip Code:[place] [address] Email: Financial Information Financial Class:Medicare Primary Plan Desc:MEDICARE INPATIENT Primary Plan Number:[id number] Secondary Plan Desc:GRACE Secondary Plan Number:[id number] Assessment Information LACE LACE Length of stay for Answers: 1 day current admission Acuity / Level of Answers: Yes Care: Did the patient have an inpatient admission? Comorbidities - select Answers: Chronic pulmonary disease all that apply Congestive heart failure Coronary Artery Disease Diabetes (uncontrolled or controlled) Mild liver or renal disease Opioid dependence / Chronic pain Other Notes: HTN, AFIB, elevated tro p # of Emergency department Answers: 1-2 visits in the last 6 months Score: 19 Date Signed: 10/14/2017 04:05 PM Electronically Signed By:Angela Segura RN Case Management Discharge Plan Note Case Management Discharge Discharge Order Complete? Answers: Yes Patient to Obtain Answers: Independently Medications Transportation Arranged Answers: Family/Friends Discharge Comments Notes: 10/14/2017 Case Management Note Met pt during rounds this morning. Pt to d/c independent. PT recommending outpatient rehab. Date Signed: 10/14/2017 04:07 PM Electronically Signed By:Angela Segura RN Intervention Information
[2017-10-14] MEDS ORDERED: CARVEDILOL 25 MG TAB PO SCH (18:00)
== END 2017-10-14 17:08 | disposition home or self-care (01) | DRG 293 ==
LOC: OBSVTOIN 10:40 → F2W 14:33
PROVIDERS: ADMIT Internal Medicine; ATTEND Internal Medicine
DX: I11.0 Hypertensive heart disease with heart failure (principal); I50.31 Acute diastolic (congestive) heart failure; I48.2 Chronic atrial fibrillation; E11.9 Type 2 diabetes mellitus without complications; G47.33 Obstructive sleep apnea (adult) (pediatric); I25.10 Atherosclerotic heart disease of native coronary artery without angina pectoris; E78.00 Pure hypercholesterolemia, unspecified; Z95.1 Presence of aortocoronary bypass graft; Z87.891 Personal history of nicotine dependence; Z98.1 Arthrodesis status; Z99.81 Dependence on supplemental oxygen; Z95.810 Presence of automatic (implantable) cardiac defibrillator
CPT/HCPCS: 96365; 97161-GP; G8978-GP-CI; G8979-GP-CI; G8980-GP-CI; J1940

== ENCOUNTER → 2017-10-28 | Outpatient (CLI) | payer OTHER | LOC: FIMAGING 13:58 | PROVIDERS: ATTEND Nurse Practitioner | DX: Z98.1 Arthrodesis status (principal); M54.16 Radiculopathy, lumbar region ==

== ENCOUNTER → 2018-01-15 | Outpatient (CLI) | payer OTHER ==
[2018-01-15 09:05] LABS: INR 1.02 (0.83-1.16); PROTIME(PATIENT) 13.6 SEC (12.0-15.0)
== END ==
LOC: FIMAGING 08:01
PROVIDERS: ATTEND Nurse Practitioner
PROC: 3E0R3KZ Introduction of Other Diagnostic Substance into Spinal Canal, Percutaneous Approach (ICD-10-PCS; principal; 2018-01-15)
DX: M48.061 Spinal stenosis, lumbar region without neurogenic claudication (principal); M48.07 Spinal stenosis, lumbosacral region; Z98.1 Arthrodesis status
CPT/HCPCS: 62284; 72132; 72265; Q9966

== ENCOUNTER → 2018-01-23 | Outpatient (CLI) | payer OTHER | DX: I48.91 Unspecified atrial fibrillation (principal); Z45.010 Encounter for checking and testing of cardiac pacemaker pulse generator [battery] ==

== ENCOUNTER 2018-01-27 11:25 | Day surgery (SDC) | payer OTHER ==
[2018-01-27] MEDS ORDERED: DIAZEPAM 5 MG TAB PO ONE (11:39)
[2018-01-27] MEDS ORDERED: NS 1,000 ML IV ONE (11:39)
[2018-01-27] MEDS ORDERED: BACITRACIN IRRIGATION/NS 50,000 UNITS/1,000 ML BTL IRR ONE (11:39)
[2018-01-27] MEDS ORDERED: ceFAZolin 2 GM/DEXTROSE 100 ML IV ONE (11:39)
[2018-01-27] MEDS ORDERED: diphenhydrAMINE 25 MG CAP PO ONE (11:39)
--- NOTE | 2018-01-27 11:50 | PDGENHP ---
History & Physical Chief Complaint: cardiomyopathy Relevant Physical Exam: s1s2 rrr cta [id number] Cardiorespiratory Assessment: bivicd for generator change
[2018-01-27] MEDS ORDERED: BUPIVACAINE 0.75% 10 ML SDV ONE (12:06)
[2018-01-27] MEDS ORDERED: LIDOCAINE 1% 300 MG/30 ML SDV ONE (12:06)
[2018-01-27 12:12] LABS: PLATELET COUNT 105 10^3/uL (150-400)
[2018-01-27 12:22] LABS: INR 1.49 (0.83-1.16); PROTIME(PATIENT) 18.2 SEC (12.0-15.0)
--- NOTE | 2018-01-27 12:27 | PDANEPAE ---
ANE History of Present Illness Patient presents for ICD generator change ANE Past Medical History - Cardiovascular History Hx Hypertension: Yes Hx Arrhythmias: Yes Hx Chest Pain: No Hx Coronary Artery / Peripheral Vascular Disease: Yes Hx CHF / Valvular Disease: Yes Hx Palpitations: No Cardiovascular History Comment: hx of CHF. ISCHEMIC CARDIOMYOPATHY. PACER / ICD '12. stents 2009. HIGH LIPIDS - Pulmonary History Hx Asthma/Reactive Airway Disease: No Hx Recent Upper Respiratory Infection: No Hx Oxygen in Use at Home: Yes Hx Sleep Apnea: Yes Pulmonary History Comment: JARRETT- USE CPAP - Neurologic History Hx Cerebrovascular Accident: No Hx Seizures: No Hx Dementia: No Neurologic History Comment: hx of lumbar lami with vbk resulting in infection - Endocrine History Hx Diabetes: Yes Endocrine History Comment: TYPE 2 - Renal History Hx Renal Disorders: No - Liver History Hx Hepatic Disorders: No - Neurological & Psychiatric Hx Hx Neurological and Psychiatric Disorders: Yes Neurological / Psychiatric History Comment: low back pain, L glute pain,Pain in Post thigh. - Cancer History Hx Cancer: No - Congenital Disorder History Hx Congenital Disorders: No - GI History Hx Gastrointestinal Disorders: No Gastrointestinal History Comment: FISTULA REP SURG 2011. DIARRHEA - Other Health History Other Health History: none - Chronic Pain History Chronic Pain: Yes (back, L leg) - Surgical History Prior Surgeries: L carpal tunnel release,unlar nerve transposition 09-16-15. lumbar lami l3/4 l4/5 with vbk 02/09/14. lumbar i&d with vbk 03/03/14. CABG X3 - '98. ANAL FISTULA X 2 '12. R KNEE '65 ANGIOPLASY X 1-2 STENTS '. PACER ICD 2011 ANE Review of Systems Review of Systems: - Pacemaker Date Pacemaker Last Checked: 03-11-17 ANE Patient History - Allergies Allergies/Adverse Reactions: hydrocodone bitartrate [From [place]] Allergy (Severe, Verified 10/13/17 08:51) CONFUSION niacin Allergy (Verified 10/13/17 08:51) ITCHING,MUSCLE SORENESS, NAUSEA oxycodone Allergy (Verified 10/13/17 08:51) Other-Enter Comments antibiotic causing kidney/liver dis Allergy (Uncoded 05/21/17 17:42) - Home Medications Home medications: home medication list seen and reviewed Home Medications: Atorvastatin Calcium [Lipitor 20 mg (*)] 20 mg PO HS 02/18/13 [Last Taken 21:00] Herbals/Supplements -Info Only 1 ea PO DAILY 03/01/14 [Last Taken 05/21/17] Noxen-3 Fatty Acids [Fish Oil 1000 mg (*)] 3,000 mg PO DAILY 03/01/14 [Last Taken 05/21/17] Allopurinol [Allopurinol 100 MG (*)] 450 mg PO DAILY 05/20/17 [Last Taken ] Aspirin [Aspirin 81mg (*)] 81 mg PO HS 05/20/17 [Last Taken 10/12/17] Cyanocobalamin [Vitamin B12 (*)] 2,500 mcg PO DAILY 05/20/17 [Last Taken Unknown ] Dabigatran Etexilate Mesyl [Pradaxa 150 MG (*)] 150 mg PO BID 05/20/17 [Last Taken 10/13/17] Ferrous Sulfate [Ferrous Sulf 325 MG (*)] 325 mg PO DAILY 05/20/17 [Last Taken Unknown] Gabapentin [Neurontin 300 MG (*)] 900 mg PO TID 05/20/17 [Last Taken 05/28/17 21 :00] Multivitamins [Multivitamin (*)] 1 each PO HS 05/20/17 [Last Taken 05/21/17] Valsartan [Diovan (*)] 320 mg PO HS 05/20/17 [Last Taken 10/12/17] glipiZIDE [Glipizide] 5 mg PO BID 05/20/17 [Last Taken 10/13/17] Docusate Sodium [Colace 100 MG (*)] 200 mg PO HS 10/13/17 [Last Taken Unknown] Loratadine [Claritin 10 mg] 10 mg PO DAILY PRN 10/13/17 [Last Taken Unknown] - NPO status NPO Status: no food or drink >8 hours - Anes Hx Anes Hx: slow to awaken from anesthesia - Smoking Hx Smoking Status: Former smoker - Family Anes Hx Family Hx Anesthesia Complications: NONE ANE Labs/Vital Signs - Labs Result Diagrams: 01/27/18 12:05 01/27/18 12:05 - Vital Signs Height: 175.26 cm Weight: 99.79 kg ANE Physical Exam - Airway Neck exam: FROM Mallampati Score: Class 2 - Pulmonary Pulmonary: no respiratory distress - Cardiovascular Cardiovascular: regular rate and rhythym - ASA Status ASA Status: III ANE Anesthesia Plan Anesthesia Plan: GA with mask (rba discussed)
[2018-01-27] MEDS ORDERED: PROPOFOL/EMULSION 500 MG/50 ML BOTTLE IV ONE (12:32)
[2018-01-27] MEDS ORDERED: PROPOFOL 200 MG/20 ML VIAL ONE (13:23)
--- NOTE | 2018-01-27 13:56 | EPPROC ---
Electrophysiology Procedure Note: PROCEDURE PERFORMED: 1. Explantation of an A-V Implantable Cardioverter Defibrillator 2. Implantation of an A-V Implantable Cardioverted Defibrillator INDICATION: ICD Generator at DANN Cardiomyopathy PROCEDURE NOTE: Patient presented to the cardiac catheterization laboratory in a fasting, postabsorptive state. Dr. Tavarez administered sedation. The left infraclavicular area was prepped and draped in the usual sterile fashion. Lidocaine plus bupivacaine was used for local anesthesia. Using a combination of blunt and sharp dissection and electrocautery, the dissection was carried down to the prepectoral fascia and the existing ICD pocket was opened. The ICD generator was disconnected from the leads and the lead thresholds and impedance were checked. The ICD pocket was copiously irrigated with antibiotic solution. The pocket was again inspected for any bleeding. The leads were attached to the ICD securely. The ICD was inserted into the pocket and secured in place with a nonabsorbable suture. Defibrillation testing was not performed. The ICD pocket was closed in 3 layers with absorbable monocryl sutures and iris. Appropriate dressing was applied. The patient left the cardiac catheterization laboratory in stable condition. Serial Numbers: 1. Implanted Device: Biotronik Itrevia 7HFT DF1 Sn [id number] 2. Atrial Lead: SJM 1882TC SN [id number] 3. Ventricular Lead: Linox Smart SD65/16 SN [id number] 4. Coronary sinus Lead: Biotronik Corox 85BP SN [id number] Stimulation Thresholds & Impedance Measurements: 1. Atrial Lead AFIB, F waves 1.3 mV 2. Ventricular Lead R15.3mV 403 ohm 0.6 V 0.4 ms 3. Coronary sinus Lead R 24.3 mV 1447 ohm 1.8 V 1 ms Defibrillation testing: Not done due to recent CHF and low LVEF+ Pacing Parameters: 1. Pacing mode: VVI - CLS 2. Lower rate: 60 ppm 3. Upper tracking rate: 120 ppm 4. Upper sensor rate: 120 ppm Tachycardia therapy parameters: VF zone : Detection 231 bpm First therapy 26 Joule Subsequent therapies 40 Joule VT zone : Detection 182 bpm First therapy ATP x 3 Second therapy 20 Joule Subsequent therapies 40 Joule Patient Problems: Problems Problem Status Onset chronic disease mgmt/transitional care Acute CHF - Congestive heart failure Acute CAD - Coronary arteriosclerosis Active Chronic obstructive lung disease Active Lumbar stenosis Acute Lumbar radicular pain Acute Arthrodesis status Acute Atrial fibrillation Acute Elevated troponin Acute Hypertension Acute
--- NOTE | 2018-01-27 13:58 | POSTANESTH ---
Post Anesthetic Evaluation Cardiovascular Status: Similar to Pre-Op Cond Respiratory Status: Similar to Pre-op Cond. Level of Consciousness/Mental Status: Alert and Oriented Pain Control: Adequate, Prn Tx Ordered Nausea/Vomiting Control: Adequate, Prn Tx Ordered Complications Possibly Related to Anesthesia: None Noted
--- NOTE | 2018-01-27 14:26 | CPEKG ---
Heart Rate: 84 RR Interval: 714 QRSD Interval: 136 QT Interval: 408 QTC Interval: 483 QRS [place]: -65 T Wave [place]: 124 EKG Severity - ABNORMAL ECG - EKG Impression: ATRIAL FIBRILLATION, V-RATE 71-100 EKG Impression: NSIVCD Electronically Signed By: Ayan Bullock 29-Jan-2018 11:12:06
== END 2018-01-27 16:40 | disposition home or self-care (01) ==
LOC: FSGY 11:25 → FCATH 16:40
PROVIDERS: ATTEND Internal Medicine Cardiovascular Disease
PROC: 0JH638Z Insertion of Defibrillator Generator into Chest Subcutaneous Tissue and Fascia, Percutaneous Approach (ICD-10-PCS; principal; 2018-01-27)
DX: T82.111A Breakdown (mechanical) of cardiac pulse generator (battery), initial encounter (principal); I25.10 Atherosclerotic heart disease of native coronary artery without angina pectoris; I25.5 Ischemic cardiomyopathy; I11.0 Hypertensive heart disease with heart failure; E11.9 Type 2 diabetes mellitus without complications; Z95.5 Presence of coronary angioplasty implant and graft; Z95.810 Presence of automatic (implantable) cardiac defibrillator
CPT/HCPCS: C1882; J0690; J2704

== ENCOUNTER → 2018-03-12 | Outpatient (CLI) | payer OTHER | DX: Z98.1 Arthrodesis status (principal) ==

== ENCOUNTER → 2018-06-09 | Outpatient (CLI) | payer OTHER | LOC: FLAB 11:30 | PROVIDERS: ATTEND Nurse Practitioner | DX: Z09 Encounter for follow-up examination after completed treatment for conditions other than malignant neoplasm (principal); Z98.1 Arthrodesis status ==

== ENCOUNTER → 2018-08-07 | Outpatient (CLI) | payer OTHER | LOC: FIMAGING 13:42 | PROVIDERS: ATTEND Internal Medicine Pulmonary Disease | DX: J44.9 Chronic obstructive pulmonary disease, unspecified (principal); Z95.0 Presence of cardiac pacemaker ==

== ENCOUNTER → 2018-08-08 | Outpatient (CLI) | payer OTHER | LOC: BHFA 14:00 | PROVIDERS: ATTEND Internal Medicine Cardiovascular Disease | DX: R06.09 Other forms of dyspnea (principal) ==

== ENCOUNTER → 2018-08-13 | Outpatient (CLI) | payer OTHER | LOC: BHFA 13:30 | PROVIDERS: ATTEND Internal Medicine Cardiovascular Disease | DX: I25.10 Atherosclerotic heart disease of native coronary artery without angina pectoris (principal); R06.02 Shortness of breath | CPT/HCPCS: 78452; 93017; A9500; J2785 ==

== ENCOUNTER → 2018-09-03 | Outpatient (CLI) | payer OTHER ==
[2018-09-03 09:20] LABS: INR 1.04 (0.83-1.16); PROTIME(PATIENT) 13.8 SEC (12.0-15.0)
== END ==
LOC: FIMAGING 08:42
PROVIDERS: ATTEND Neurological Surgery
PROC: B02BYZZ Computerized Tomography (CT Scan) of Spinal Cord using Other Contrast (ICD-10-PCS; principal; 2018-09-03)
DX: M48.061 Spinal stenosis, lumbar region without neurogenic claudication (principal)
CPT/HCPCS: 62304; 72132; 72265; Q9966

== ENCOUNTER 2018-09-04 07:10 | Day surgery (SDC) | payer OTHER ==
[2018-09-04] MEDS ORDERED: DIAZEPAM 5 MG TAB PO ONE (07:30)
[2018-09-04] MEDS ORDERED: NS 1,000 ML IV ONE (07:30)
[2018-09-04] MEDS ORDERED: diphenhydrAMINE 25 MG CAP PO ONE ×2 (07:30→07:39)
[2018-09-04] MEDS ORDERED: FAMOTIDINE 20 MG TAB PO ONE (07:30)
[2018-09-04] MEDS ORDERED: ASPIRIN EC 325 MG TAB PO ONE ×2 (07:30→07:39)
[2018-09-04] MEDS ORDERED: DIAZEPAM 5 MG TAB ONE (07:39)
[2018-09-04] MEDS ORDERED: FAMOTIDINE 20 MG TAB ONE (07:39)
[2018-09-04] MEDS ORDERED: HEPARIN 10,000 UNIT/10 ML MDV (1,000 UNIT/ML) ONE (07:44)
[2018-09-04] MEDS ORDERED: MIDAZOLAM 2 MG/2 ML VIAL ONE (07:44)
[2018-09-04] MEDS ORDERED: fentaNYL 100 MCG/2 ML INJ ONE (07:44)
[2018-09-04] MEDS ORDERED: VERAPAMIL 5 MG/2 ML VIAL ONE (07:44)
[2018-09-04] MEDS ORDERED: LIDOCAINE 1% 300 MG/30 ML SDV ONE (07:44)
[2018-09-04] MEDS ORDERED: IOHEXOL 350mgI/ML (OMNIPAQUE) 150 ML BTL IV ONE (07:45)
[2018-09-04 08:13] LABS: PLATELET COUNT 121 10^3/uL (150-400)
[2018-09-04 08:16] LABS: INR 1.06 (0.83-1.16)
--- NOTE | 2018-09-04 08:41 | PDPROPOC ---
Sedation Plan of Care Sedation Plan of Care: vital signs stable, mental status noted, patient educated of risks, benefits, alternatives, patient can tolerate sedation ASA Classification: ASA 2 Planned drugs: fentanyl, midazolam Mallampati Score: Class 3 Mallampati Reference Image: Patient passed 3-3-2 rule?: Yes
[2018-09-04] MEDS ORDERED: BIVALIRUDIN 250 MG/5 ML VIAL IV ONE (09:31)
[2018-09-04] MEDS ORDERED: CLOPIDOGREL BISULFATE 75 MG TAB ONE (09:49)
[2018-09-04] MEDS ORDERED: CLOPIDOGREL BISULFATE 75 MG TAB PO ONE (13:26)
--- NOTE | 2018-09-04 13:33 | PDDXCAT ---
Diagnostic Cath Note - . Date: 09/04/18 Outboard Motor Tester: Esdras Indication: Class I/II angina, intolerance to med therapy or failure to respond High-risk criteria on non-invasive testing: stress-induced moderate-size multiple perfusion defects - Procedure Access: right groin Procedure: left heart catheterization, coronary angiography, left ventriculogram , vein graft injection, PRASAD injection - Materials Left Heart Cath size: 6F Left Heart Cath materials: standard multipack (JL4, JR4, pigtail) - Findings-Left Heart Catheterization LM: Unobstructed LAD: 100% occluded LCX: 85-90% stenosis of the body of the circumflex RCA: Luminal irregularities of 10-15%. Dominant vessel rSVG: Patent to the diagonal, stump graft to the lateral wall PRASAD: Patent to the LAD with retrograde filling EDP: 18 mm of mercury LVEF: 40% Wall motion: Anterolateral akinesis Complications: None Estimated blood loss: <50ml Closure method: Angioseal Assessment: Progressive coronary artery disease with new lesion in the body of the circumflex. Ejection fraction 40% with lateral akinesis. Patent mammary artery to the LAD. Patent vein graft to the diagonal. Occluded vein graft to the lateral wall. Plan: PCI Intervention: Patient was anticoagulated with Angiomax. Using a 6 [place] JL4 guiding catheter left main was selectively intubated. Using a 0.014 luge wire the circumflex artery stenosis was crossed. Q CA was performed. A 3.0 x 16 mm synergy stent was placed across the lesion deployed using a single inflation. Repeat angiogram showed JOHNATHON grade 3 flow. Wire was withdrawn. Ventriculogram was performed. Patient is taken to recovery for continued care. Conclusions successful PCI and stenting of the circumflex artery. Plan: Triple anticoagulation for 1 month with Plavix, Pradaxa, aspirin. At 30 days would drop aspirin. Discussed holding elective surgery for at least 3 months. Patient Problems: Problems Problem Status Onset chronic disease mgmt/transitional care Acute CHF - Congestive heart failure Acute CAD - Coronary arteriosclerosis Active Chronic obstructive lung disease Active Lumbar stenosis Acute Lumbar radicular pain Acute Arthrodesis status Acute Atrial fibrillation Acute Elevated troponin Acute Hypertension Acute
[2018-09-05] MEDS ORDERED: CLOPIDOGREL BISULFATE 75 MG TAB PO SCH (09:00)
[2018-09-05] MEDS ORDERED: ASPIRIN EC 81 MG TAB PO SCH (09:00)
== END 2018-09-04 15:08 | disposition home or self-care (01) ==
LOC: FCATH 07:10
PROVIDERS: ATTEND Internal Medicine Interventional Cardiology
DX: I25.119 Atherosclerotic heart disease of native coronary artery with unspecified angina pectoris (principal); Z95.1 Presence of aortocoronary bypass graft; Z95.5 Presence of coronary angioplasty implant and graft; I48.2 Chronic atrial fibrillation; I12.9 Hypertensive chronic kidney disease with stage 1 through stage 4 chronic kidney disease, or unspecified chronic kidney disease; I27.29 Other secondary pulmonary hypertension; E11.22 Type 2 diabetes mellitus with diabetic chronic kidney disease; N18.9 Chronic kidney disease, unspecified; G47.33 Obstructive sleep apnea (adult) (pediatric)
CPT/HCPCS: 92928; 93459; C1769; C1887; C1760; C1874; C9600; J0583; J1644; J2250; J3010; Q9966; Q9967